=== PATIENT | male | born 1935 | race Caucasian/White ===

== ENCOUNTER 2016-12-07 09:30 | Day surgery (SDC) | payer MEDICARE, BC ==
[~2016-12-07 09:30] MED LIST: Acetaminophen TAB* 325 MG PO PRN; Buffered Lidocaine 1% SYR 3ML* 3 ML/SYR SYRINGE INTRADERM ONE
[2016-12-07] MEDS ORDERED: acetaZOLAMIDE TAB* 250 MG ONE (09:51)
[2016-12-07] MEDS ORDERED: Phenylephrine 2.5% OPTH.SOL* 2 ML BTL ONE (09:51)
[2016-12-07] MEDS ORDERED: Lidocaine 1% MPF* 2 ML VIAL ONE (09:51)
[2016-12-07] MEDS ORDERED: Neomycin/Polymy/Dex OPHTH.OIN* 3.5 GM ONE (09:51)
[2016-12-07] MEDS ORDERED: Flurbiprofen 0.03% OPTH.SOL* 2.5 ML BTL ONE (09:51)
[2016-12-07] MEDS ORDERED: Cyclopentolate 1% OPTH.SOL* 2 ML BTL ONE (09:51)
[2016-12-07] MEDS ORDERED: Tetracaine 0.5% OPTH.SOL 4 ML* 1 DROP BTL ONE (09:51)
[2016-12-07] MEDS ORDERED: Povidone Iodine 5% OPTH* 30 ML BTL ONE (09:51)
[2016-12-07] MEDS ORDERED: Midazolam* 1 MG/ML 2 ML VIAL (2 MG) ONE (10:51)
[2016-12-07 13:13] VITALS: BP 127/73
--- NOTE | 2016-12-08 03:30 | OP ---
DATE OF OPERATION: 12/07/16 - [facility] DATE OF : 35 SURGEON: Ben Pinto MD ANESTHESIOLOGIST: Nathan Jaramillo MD ANESTHESIA: Monitored anesthesia care. PRE-OP DIAGNOSIS: Cataract of left eye. POST-OP DIAGNOSIS: Cataract of left eye. OPERATIVE PROCEDURE: Cataract extraction of left eye. IMPLANTS: SN60WF 18.5 diopter lens to the left eye. COMPLICATIONS: None. DESCRIPTION OF PROCEDURE: The patient was given phenylephrine 2.5% and cyclopentolate 1% eye drops to the operative eye in the preoperative area. The patient was brought to the operating room where a time-out was taken to identify the correct patient, site, and side of surgery. The patient's left eye was prepped and draped in the usual sterile fashion with 5% Betadine. A second time-out was taken to verify the correct patient, site, and side of the surgery, and correct lens selection. A lid speculum was placed to the left eye. A 1-mm paracentesis blade was used to make a clear corneal incision in the inferotemporal position. Preservative-free 1% lidocaine was injected into the anterior chamber. DuoVisc was then injected into the anterior chamber. A 2.75-mm keratome blade was used to make a triplanar incision at the superotemporal position. A cystotome was used to initiate a capsulorrhexis, which was completed with Utrata forceps in a continuous and curvilinear manner. Hydrodissection of the lens was then performed with BSS on a cannula. The lens could be spun in the capsular bag. The phacoemulsification handpiece was then used with a [id number] technique to remove the nucleus in its entirety with 12.53 CDE. The I/A handpiece was then used to remove the residual cortical lens material. DuoVisc was then injected to inflate the capsular bag. The planned SN60WF 18.0 diopter lens was then injected in the capsular bag. The residual DuoVisc was then removed from the eye with the I/A handpiece. The corneal incisions were then hydrated and no leaks occurred at physiologic pressure around 20 mmHg per palpation. The lid speculum was then removed and drapes removed. Maxitrol ointment was then placed to the surface of the operative eye. An adhesive patch and shield were then placed on the operative eye. The patient was taken to the postop area in stable condition. [id number]/[id number] #: [id number] GUSTAVO
== END 2016-12-07 12:06 | disposition home or self-care (01) ==
LOC: OREAST 09:30
PROVIDERS: ATTEND Student in an Organized Health Care Education/Training Program
DX: H25.12 Age-related nuclear cataract, left eye (principal); I49.8 Other specified cardiac arrhythmias; I25.10 Atherosclerotic heart disease of native coronary artery without angina pectoris; R01.1 Cardiac murmur, unspecified; I35.0 Nonrheumatic aortic (valve) stenosis; Z95.0 Presence of cardiac pacemaker; E03.9 Hypothyroidism, unspecified; I25.2 Old myocardial infarction
CPT/HCPCS: A9270-GY; J2250; V2632

== ENCOUNTER 2017-03-17 13:25 | Emergency (ER) | payer MEDICARE, BC ==
[2017-03-17 13:45] VITALS: BP 129/68
--- NOTE | 2017-03-17 14:54 | UC ---
Laceration HPI - HPI Summary HPI Summary: LEFT FIFTH FINGER CAUGHT ON FENCE ON 03/13/17. SUSTAINED LACERATION AT THAT TIME. NOW REDNESS AND DISCHARGE FROM WOUND. ABLE TO FLEX AND EXTEND FINGER WITHOUT PAIN. TETANUS UP TO DATE. - History Of Current Complaint Chief Complaint: UCUpperExtremity Stated Complaint: HAND INJURY Time Seen by Provider: 03/17/17 14:26 Hx Obtained From: Patient Laceration Location: Finger - LEFT 5TH Mechanism Of Injury: Sharp Trauma Onset/Duration: Sudden Onset, Lasting Days, Still Present Severity: Mild Pain Intensity: 2 Pain Scale Used: 0-10 Numeric Related History: Dominant Hand Right - Allergies/Home Medications Allergies/Adverse Reactions: Allergies Allergy/AdvReac Type Severity Reaction Status Date / Time Statins AdvReac Intermediate Muscle Ache Verified 03/17/17 13:45 PMH/Surg Hx/FS Hx/Imm Hx Previously Healthy: Yes - Surgical History Surgical History: Yes Surgery Procedure, Year, and Place: rotator repair bilat/testicles lowered as kid/appy/tonsilectomy/thyroidectomy. cardiac stents placed. thumb surgery. right ankle repair 1973 - Family History Known Family History: Positive: Other - neg: anasthesia reaction Negative: Blood Disorder - Social History Occupation: Retired Lives: With Family Alcohol Use: None Substance Use Type: None Smoking Status (MU): Never Smoked Tobacco Have You Smoked in the Last Year: No - Immunization History Most Recent Tetanus Shot: less then Review of Systems Constitutional: Negative Skin: Other - LEFT FIFTH FINGER LACERATION (4 DAYS OLD) Eyes: Negative ENT: Negative Respiratory: Negative Cardiovascular: Negative Gastrointestinal: Negative Genitourinary: Negative Motor: Negative Neurovascular: Negative Musculoskeletal: Negative Neurological: Negative Psychological: Negative All Other Systems Reviewed And Are Negative: Yes Physical Exam Triage Information Reviewed: Yes Appearance: Well-Appearing, No Pain Distress, Well-Nourished Vital Signs: Initial Vital Signs Temp 98.1 F 03/17/17 13:38 Pulse 62 03/17/17 13:38 Resp 18 03/17/17 13:38 BP 129/68 03/17/17 13:38 Pulse Ox 98 03/17/17 13:38 Vital Signs Reviewed: Yes Eye Exam: Normal ENT Exam: Normal ENT: Positive: Normal ENT inspection Dental Exam: Normal Neck exam: Normal Neck: Positive: Supple, Nontender Respiratory Exam: Normal Respiratory: Positive: Chest non-tender, Lungs clear Cardiovascular Exam: Normal Cardiovascular: Positive: RRR, No Murmur Abdominal Exam: Normal Musculoskeletal: Positive: Strength Intact, ROM Intact, No Edema, Other: - REMOTE LACERATION LEFT FIFTH FINGER Neurological Exam: Normal Psychological Exam: Normal Skin Exam: Normal Laceration Repair - Laceration Repair 1 Description: Linear - 1.5 : No Repair Necessary Laceration Course/Dx - Differential Dx - Laceration/Wound Differental Diagnoses: Cellulitis, Joint Infection, Laceration, Tendon Laceration Provider Diagnoses: REMOTE LACERATION LEFT FIFTH FINGER WITH CORRESPONDING CELLULITIS Discharge - Discharge Plan Condition: Stable Disposition: HOME Prescriptions: Cephalexin CAP* [Keflex CAP*] 500 mg PO QID #40 cap Patient Education Materials: Laceration Without Closure (ED) Referrals: Aliyah Hooks MD [Primary Care Provider] - Lowell Long MD [Medical Doctor] - Images Hands: 1 - REMOTE LACERATION WITH SURROUNDING ERRYTHEMA
== END 2017-03-17 14:45 | disposition home or self-care (01) ==
LOC: UCEAST 13:25
DX: S61.217A Laceration without foreign body of left little finger without damage to nail, initial encounter (principal); L03.012 Cellulitis of left finger; W26.8XXA Contact with other sharp object(s), not elsewhere classified, initial encounter
CPT/HCPCS: 99213; G0463

== ENCOUNTER 2017-10-06 18:14 | Inpatient (IN) | payer MEDICARE, BC ==
--- NOTE | 2017-10-06 18:58 | RAD ---
INDICATION: Short of breath COMPARISON: March 02, 2017 TECHNIQUE: An AP portable view obtained at 1843 hours is submitted. FINDINGS: Bones/Soft Tissues: There are no acute bony findings. There is left-sided cardiac pacemaker Cardiomediastinal: The cardiomediastinal silhouette is unchanged. There is mild: Of the aorta. Lungs: There are no infiltrates. Pleura: There are no pleural effusions. Other: None IMPRESSION: CARDIAC PACEMAKER. NO ACTIVE DISEASE.
[2017-10-06 19:03] LABS: ABS Basophils 0 10^3/ul (0-0.2); ABS Eosinophils 0.2 10^3/ul (0-0.6); ABS Lymphocytes 0.8 10^3/ul (1.0-4.8); ABS Monocytes 0.8 10^3/ul (0-0.8); ABS Neutrophils 2.1 10^3/ul (1.5-7.7); ABS Nucleated RBC 0 10^3/ul; Eosinophil % 4.8 % (0-6); Hematocrit 37 % (42-52); Hemoglobin 12.4 g/dl (14.0-18.0); Lymphocyte % 21.5 % (25-47); Mean Corpuscular HGB Conc 34 g/dl (31-36); Mean Corpuscular Hemoglobin 30 pg (27-31); Mean Corpuscular Volume 89 fL (80-94); Mean Platelet Volume 9 um3 (7.4-10.4); Nucleated Red Blood Cells % 0; Platelet Count 148 10^3/ul (150-450); Red Blood Count 4.09 10^6/ul (4.0-5.4); Red Cell Distribution Width 13 % (10.5-15); White Blood Count 3.9 10^3/ul (3.5-10.8)
[2017-10-06 19:13] LABS: INR 0.98 (0.77-1.02)
[2017-10-06 19:17] LABS: EGFR Non-African American 119.7 (>60)
[2017-10-06] MEDS ORDERED: Iohexol 350* (CONTRAST) 500 ML MDV IV ONE (20:33)
--- NOTE | 2017-10-06 20:56 | RAD ---
INDICATION: Short of breath. Abdominal pain. COMPARISON: CTA chest/abdomen/pelvis October 07, 2012 TECHNIQUE: Axial source images were obtained from the thoracic inlet to the symphysis pubis following administration of oral and intravenous contrast. 98 mL Omnipaque 350 was utilized. Coronal and sagittal reconstructed images were acquired. CHEST FINDINGS: Neck/thyroid: The visualized neck to include the thyroid appear normal. Chest wall: There are no acute abnormalities of the bony thorax or chest wall. There is no supraclavicular, infraclavicular, or axillary lymphadenopathy. Lungs : There are no pulmonary parenchymal masses or infiltrates. The pulmonary interstitium appears normal. There are no endobronchial lesions. Cardiomediastinal structures: The heart is mildly enlarged. There is no pericardial effusion. There is a cardiac pacemaker/defibrillator producing beam hardening artifact. There is uncoiling and ectasia of the thoracic aorta with tortuosity at the diaphragmatic hiatus. There is no evidence of aortic aneurysm or dissection. The pulmonary vessels appear normal. There is no mediastinal or hilar adenopathy. The esophagus appears normal. Pleura : There are no pleural-based masses or effusions. ABDOMINAL/PELVIC FINDINGS: Liver: The liver is normal in size. There are no masses. There is no ductal dilatation. Gallbladder: There are a tiny calcified gallstone. There is no evidence of wall thickening or pericholecystic fluid. Spleen: The spleen is normal in size. There are no new masses. There are several low-density splenic lesions, possibly cysts. These are unchanged. Pancreas: There is no evidence of pancreatic mass or ductal dilatation. There is partial fatty replacement with mild pancreatic atrophy Adrenal glands: There is no evidence of adrenal mass. Kidneys: The kidneys are normal in size and position. There are prompt nephrograms and there is prompt excretion bilaterally. There are no renal parenchymal masses. There is no evidence of nephrolithiasis. Adenopathy: There is no evidence of adenopathy by size criteria. Fluid collections: There are no free or localized fluid collections. Vessels:There are mild atherosclerotic changes of the aorta. There is no focal aneurysm. The IVC is unremarkable GI tract: There are no acute CT bowel findings. There is no obstruction. The stomach and small bowel appear normal. The lower GI tract is remarkable for moderate retained stool. There is no obstruction. Pelvic organs: The prostate and seminal vesicles appear normal Bladder: There are no bladder masses. Abdominal and pelvic soft tissues: The extraperitoneal abdominal and pelvic soft tissues appear normal.. Osseous structures: There are no acute osseous findings. IMPRESSION: 1. 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 No evidence of aneurysm or dissection. No evidence of acute pulmonary emboli. 2. Tiny gallstone. 3. Stable low-density splenic lesions, likely cysts. 4. No mass or adenopathy in the abdomen or pelvis. 5. Retained stool
[2017-10-06 21:02] LABS: Urine Appearance Clear; Urine Blood 1+ (Negative); Urine Color Straw; Urine Ketones Negative (Negative); Urine Protein Negative (Negative); Urine Specific Gravity 1.008 (1.010-1.030); Urine Urobilinogen Negative (Negative)
--- NOTE | 2017-10-06 21:46 | ED ---
Hortencia Velasquez Gabriel, scribed for Joseph Levine MD on 10/06/17 at 1828 . Complex/Multi-Sys Presentation - HPI Summary HPI Summary: This patient is a 82 year old F presenting to [facility] with a chief complaint of SOB since the beginning of this week. Patient reports weakness, cough, and ABD pain. He has had normal BM and urination [employer]. He has a periumbilical hernia that has been there for 4-5 years. The patient is a poor historian and is attempting to describe how he has to put pressure on his ABD using the edge of a counter in order to breath. - History Of Current Complaint Chief Complaint: EDAbdPain Time Seen by Provider: 10/06/17 18:17 Hx Obtained From: Patient Onset/Duration: Lasting Weeks - 1, Still Present Timing: Constant Severity Currently: Moderate Severity Initially: Moderate Associated Signs And Symptoms: Positive: SOB, Cough, Other - weakness - Allergies/Home Medications Allergies/Adverse Reactions: Allergies Allergy/AdvReac Type Severity Reaction Status Date / Time Statins AdvReac Intermediate Muscle Ache Verified 10/06/17 20:07 PMH/Surg Hx/FS Hx/Imm Hx Endocrine/Hematology History: Reports: Hx Thyroid Disease - hypo Denies: Hx Diabetes, Hx Anemia Cardiovascular History: Reports: Hx Coronary Artery Disease, Hx Hypercholesterolemia - intolerance to statins, Hx Hypertension, Hx Pacemaker/ICD , Other Cardiovascular Problems/Disorders - acute coronary syndrome, stents placed Respiratory History: Reports: Hx Sleep Apnea - current BiPAP user Denies: Hx Asthma, Hx Chronic Obstructive Pulmonary Disease (COPD) GI History: Denies: Hx Jaundice, Hx Ulcer Musculoskeletal History: Reports: Hx Arthritis - R ANKLE, Hx Orthopedic Injury - (left) knee meniscus tear, bilateral shoulder rotator cuff tear, Other Musculoskeletal History - HX R ANKLE BReak, spinal stenosis Sensory History: Reports: Hx Cataracts - in left, Hx Contacts or Glasses - glasses, Hx Hearing Aid - bilateral, Hx Hearing Problem Opthamlomology History: Reports: Hx Cataracts - in left, Hx Contacts or Glasses - glasses - Surgical History Surgery Procedure, Year, and Place: rotator repair bilat/testicles lowered as kid/appy/tonsilectomy/thyroidectomy. cardiac stents placed. thumb surgery. right ankle repair 1973 Hx Anesthesia Reactions: No Infectious Disease History: No Infectious Disease History: Denies: Hx Clostridium Difficile, Hx Hepatitis, Hx Human Immunodeficiency Virus (HIV), Hx of Known/Suspected MRSA, Hx Shingles, Hx Tuberculosis, Hx Known/ Suspected VRE, Hx Known/Suspected VRSA, History Other Infectious Disease, Traveled Outside the [place] in Last 30 Days - Family History Known Family History: Positive: Cardiac Disease - father of [place] , Hypertension, Other - neg: anasthesia reaction Negative: Blood Disorder - Social History Occupation: Employed Full-time Alcohol Use: None Hx Substance Use: No Substance Use Type: Reports: None Hx Tobacco Use: No Smoking Status (MU): Never Smoked Tobacco Have You Smoked in the Last Year: No Review of Systems Positive: Shortness Of Breath, Cough Positive: Abdominal Pain, Other - normal BM Positive: no symptoms reported All Other Systems Reviewed And Are Negative: Yes Physical Exam Triage Information Reviewed: Yes Vital Signs On Initial Exam: Initial Vitals Temp Pulse Resp BP Pulse Ox 98.4 F 86 67 167/65 96 10/06/17 18:18 10/06/17 18:18 10/06/17 18:18 10/06/17 18:18 10/06/17 18:18 Vital Signs Reviewed: Yes Appearance: Positive: No Pain Distress Skin: Positive: Warm, Skin Color Reflects Adequate Perfusion Head/Face: Positive: Normal Head/Face Inspection Eyes: Positive: EOMI ENT: Positive: Pharynx normal Neck: Positive: Nontender Respiratory/Lung Sounds: Positive: Clear to Auscultation, Breath Sounds Present , Other - coughing Cardiovascular: Positive: RRR. Negative: Murmur Abdomen Description: Positive: Hernia @ - ventral and midline with some distention. Musculoskeletal: Positive: Strength/ROM Intact Neurological: Positive: Sensory/Motor Intact, Alert, Oriented to Person Place, Time, CN Intact II-III, Speech Normal Psychiatric: Positive: Normal - [place] Coma Scale Best Eye Response: 4 - Spontaneous Best Motor Response: 6 - Obeys Commands Best Verbal Response: 5 - Oriented Diagnostics - Vital Signs Vital Signs Temp Pulse Resp BP Pulse Ox 10/06/17 18:18 98.4 F 86 67 167/65 96 - Laboratory Lab Results: Lab Results 10/06/17 10/06/17 Range/Units 18:50 18:50 WBC 3.9 (3.5-10.8) 10^3/ul RBC 4.09 (4.0-5.4) 10^6/ul Hgb 12.4 L (14.0-18.0) g/dl Hct 37 L (42-52) % MCV 89 (80-94) fL MCH 30 (27-31) pg MCHC 34 (31-36) g/dl RDW 13 (10.5-15) % Plt Count 148 L (150-450) 10^3/ul MPV 9 (7.4-10.4) um3 Neut % (Auto) 52.7 (38-83) % Lymph % (Auto) 21.5 L (25-47) % [place] % (Auto) 20.6 H (1-9) % Eos % (Auto) 4.8 (0-6) % Baso % (Auto) 0.4 (0-2) % Absolute Neuts (auto) 2.1 (1.5-7.7) 10^3/ul Absolute Lymphs (auto) 0.8 L (1.0-4.8) 10^3/ul Absolute Monos (auto) 0.8 (0-0.8) 10^3/ul Absolute Eos (auto) 0.2 (0-0.6) 10^3/ul Absolute Basos (auto) 0 (0-0.2) 10^3/ul Absolute Nucleated RBC 0 10^3/ul Nucleated RBC % 0 Blood Type A Positive Antibody Screen Pending Result Diagrams: 10/06/17 18:50 10/06/17 18:50 Lab Statement: Any lab studies that have been ordered have been reviewed, and results considered in the medical decision making process. - Radiology CXR Radiology Interpretation Completed By: Radiologist - Cardiac pacemaker, no active disease. This report has been reviewed by ED physician. - CT CTA Chest/thorax/ABD CT Interpretation Completed By: Radiologist - 1. 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 No evidence of aneurysm or dissection. No evidence of acute pulmonary emboli. 2. Tiny gallstone. 3. Stable low-density splenic lesions, likely cysts. 4. No mass or adenopathy in the abdomen or pelvis. 5. Retained stool ED physician has reviewed this radiology report. - EKG 18:24 Cardiac Rate: NL EKG Rhythm: Sinus Rhythm - at 63 BPM EKG Interpretation: 1st degree AV block, paced spike EKG Comparison: Other - in comparison to EKG from 03/02/2017 there is flipped T waves in the inferior lead that are new Complex Multi-Symp Course/Dx Course Of Treatment: 82 yr old male with abdominal pain, sob, coughing. CTA chest abd pelvis without Aortic dissection, PE, pneumonia. The EKG does have some flip twaves that are new. Plan to admit for obv. - Diagnoses Provider Diagnoses: Shortness of breath, Abdominal pain, Acute electrocardiogram changes - Physician Notifications Discussed Care Of Patient With: Savanna Cruz Time Discussed With Above Provider: 21:41 Instructed by Provider To: Admit As Observation Discharge - Discharge Plan Condition: Good Disposition: ADMITTED TO [facility] Referrals: Aliyah Hooks MD [Primary Care Provider] - The documentation as recorded by the Hortencia becker Gabriel accurately reflects the service I personally performed and the decisions made by , Joseph Levine MD.
[2017-10-06] MEDS ORDERED: Ondansetron INJ* 2 MG/ML VIAL IV PRN (22:12)
[2017-10-06] MEDS ORDERED: Acetaminophen TAB* 325 MG PO PRN (22:12)
[2017-10-06] MEDS ORDERED: Al Hydrox/Mg Hydrox/Simet LIQ* 30 ML UDC PO PRN (22:12)
[2017-10-06] MEDS ORDERED: Aspirin EC Low Dose* 81 MG TAB.EC PO ONE (22:14)
[2017-10-06] MEDS ORDERED: guaiFENesin ER TAB 600 MG PO ONE (22:16)
[2017-10-06] MEDS ORDERED: Albuterol HFA INHALER* 8 gm MDI INH PRN (22:16)
--- NOTE | 2017-10-07 00:01 | HP ---
CC: Aliyah Hooks MD * HISTORY AND PHYSICAL: DATE OF ADMISSION: 10/06/17 TIME OF EVALUATION: 2200 PRIMARY CARE PHYSICIAN: Aliyah Hooks MD CHIEF COMPLAINT: Shortness of breath. HISTORY OF PRESENT ILLNESS: This is an 82-year-old male with past medical history of [place] and TIA, who presents to the emergency room with acute onset of shortness of breath and coughing. The patient states for the past 2 to 3 days, he has had a productive cough. He had fevers yesterday of 101 to 102, today they are 99. He says he had significant coughing spells and short of breath that he cannot get the mucus out. He has some gagging and worried that he is going to have inability to breathe. He also gets a diffuse headache when he is coughing and is worried that he is going to have a stroke due to the significant headache that he gets. No headache right now. He is not coughing. Denies any shortness of breath. He is having difficulty sleeping at night. He denies any chest pain. No nausea, vomiting. No abdominal pain. No diaphoresis. No dysuria, no constipation, no diarrhea. He has had body aches and generalized malaise. Otherwise, remaining review of systems is negative. In the emergency room, the patient had labs, imaging, EKG, concern for EKG changes and was referred to the hospitalist service for further evaluation. PAST MEDICAL HISTORY: 1. History of sick sinus syndrome, status post pacemaker. 2. Hypothyroidism. 3. History of TIA. 4. History of [place] with stent in 2003 done at [place]. 5. Hard of hearing, wears a hearing aid. MEDICATIONS: [place] Thyroid 120 mL daily in the morning. ALLERGIES: STATINS, develops muscle aches. FAMILY HISTORY: Mother from old age. Father at age 52 from an [place]. SOCIAL HISTORY: The patient lives alone. He ambulates with a cane. He is independent with ADLs. No history of tobacco, alcohol, or illicit drug use. Healthcare proxy is his sister, Yareli. Code status is full code. He has 4 grown children. REVIEW OF SYSTEMS: A 14-point review of systems is mentioned in the HPI, otherwise negative. PHYSICAL EXAMINATION GENERAL: No acute distress, resting comfortably with the son at the bedside. VITAL SIGNS: Temp 98.4, pulse rate 60, respiratory rate 16, oxygen saturation 94 % on room air, blood pressure 151/71. HEENT: Head normocephalic. Pupils equal and reactive. Anicteric. Oropharynx , mucous membranes moist. NECK: Supple. No lymphadenopathy. No nuchal rigidity. RESPIRATORY: Diminished breath sounds. No wheezing, rhonchi, rales. No increased work of breathing. CARDIAC: Regular rate and rhythm. Soft systolic murmur heard throughout. ABDOMEN: Soft, nontender, nondistended. EXTREMITIES: No clubbing, cyanosis, or edema. +1 DPs. NEUROLOGICAL: Alert and oriented x3. No focal neurological deficits. LABORATORY DATA: White count 3.9, hemoglobin 12.9, hematocrit 37, platelets 148,000. INR 0.98. Sodium 136, potassium 3.9, chloride 102, bicarb 28, BUN 13 , creatinine 0.64, glucose 112. CRP is 22. BNP is 125. Lipase less than 10. Lactic acid is 1. Serology is negative for influenza. RADIOGRAPHIC DATA: CTA of abdomen and pelvis shows mild diffuse ectasia of the thoracic aorta. No evidence of aneurysm, dissection. No evidence of acute pulmonary emboli. Tiny gallstones. No pulmonary infiltrates. EKG; the patient with noted marked ST inversions in lateral leads, changed from his EKG in February 2017. Also noted to have inverted T waves in V2, V3, and aVF. ASSESSMENT/PLAN: This is an 82-year-old male with past medical history of transient ischemic attack and myocardial infarction, who presents to the emergency room with upper respiratory symptoms and shortness of breath. Shortness of breath. Assessment: It appears the patient has shortness of breath when he has a coughing spell and difficulty to get out the mucus. Incidentally, he is found to have EKG changes. Denies any chest pain or any cardiac symptoms. Plan: Not unreasonable to admit him for observation on telemetry, monitor his troponin, repeat an EKG. We will continue supportive care for what appears to be a viral illness including Mucinex and a trial of albuterol inhaler as needed and we will also start him on a baby aspirin for now. CHRONIC MEDICAL PROBLEMS: 1. Hypothyroidism. Resume his [place] Thyroid. 2. FEN. Place him on a regular diet. 3. DVT prophylaxis. The patient's score is moderate risk. We will place him on heparin subcu t.i.d. 4. Code status. Full code. TIME SPENT: Greater than 50 minutes spent doing history and physical, more than half the time spent in direct patient contact. [id number] #: [id number] MTDD
[2017-10-07] MEDS: Heparin VIAL(*) 5000 UNITS/ML VIAL (FIVE THOUSAND) SUBCUT SCH ×3 (05:56→20:57)
[2017-10-07] MEDS: Thyroid TAB* 120 MG PO SCH (09:45)
[2017-10-07] MEDS: Aspirin EC Low Dose* 81 MG TAB.EC PO SCH (09:46)
[2017-10-07] MEDS: guaiFENesin ER TAB 600 MG PO SCH ×2 (09:46→20:57)
[2017-10-07] MEDS: cefTRIAXone(*) 1 GM in D5W 50 ML BAG* 50 ML IVPB SCH (11:29)
[2017-10-07 12:12] LABS: Hematocrit 38 % (42-52); Hemoglobin 12.7 g/dl (14.0-18.0); Mean Corpuscular HGB Conc 34 g/dl (31-36); Mean Corpuscular Hemoglobin 30 pg (27-31); Mean Corpuscular Volume 90 fL (80-94); Mean Platelet Volume 9 um3 (7.4-10.4); Platelet Count 147 10^3/ul (150-450); Red Blood Count 4.22 10^6/ul (4.0-5.4); Red Cell Distribution Width 13 % (10.5-15); White Blood Count 3.7 10^3/ul (3.5-10.8)
[2017-10-07] MEDS: Azithromycin IV(*) 500 MG in NS 0.9% 250 ML* 250 ML IVPB SCH (12:19)
[2017-10-07 12:38] LABS: Monocytes % 18 % (0-13)
--- NOTE | 2017-10-07 16:30 | ECHO ---
Patient: KAYLAN PENA [facility], [place] Rec#: [id number] : 1935 Date: 10/07/2017 Age: 82y Height: 167.6 cm / 66.0 in Weight: 84.8 kg / 186.9 lbs Sex: M BSA: 1.94 Room#: 433 Admit Date#: 10/06/2017 Type: Inpatient Referring: Aliyah Hooks MD Reading: Rui Bridges MD Healthcare Corporate Account Director: Regine Easton RN RDCS Transthoracic Echocardiogram Indication: Aortic stenosis BP: 130/65 HR: 65 Rhythm: Paced Findings History: CAD, NV, PCI, SSS, pacemaker, TIA Technical Comments: The study quality is fair. Completed at 1555. Left Ventricle: The left ventricular chamber size is normal. Mild concentric left ventricular hypertrophy is observed. There is increased basal septal hypertrophy noted without evidence of an increased gradient across the left ventricular outflow tract. Global left ventricular wall motion and contractility are within normal limits. There is normal left ventricular systolic function. The estimated ejection fraction is 55-60%. There is abnormal ventricular septal wall motion consistent with right ventricular pacemaker. There is an E to A reversal in the mitral valve flow pattern suggestive of diastolic dysfunction. Left Atrium: The left atrium is mildly dilated. Right Ventricle: The right ventricular chamber size and systolic function are within normal limits. A pacemaker wire is visualized in the right ventricle. Right Atrium: The right atrium is mildly dilated. A pacemaker wire is visualized in the right atrium. There is evidence of an atrial septal aneurysm. No shunting seen on color flow doppler interrogaton. Aortic Valve: The aortic valve is trileaflet. The aortic valve leaflets are mildly thickened. Systolic excursion of the aortic valve cusps is reduced. There is aortic annular calcification. There is mild aortic regurgitation. There is borderline aortic stenosis present. The mean gradient of the aortic valve is 10.4 mmHg. The peak instantaneous gradient of the aortic valve is 17.6 mmHg. The aortic valve area, by peak velocities, is calculated at 2 cm2. The aortic valve area, by VTI's, is calculated at 1.8 cm2. The highest aortic valve velocity was obtained with the standard probe from the A3C view. Mitral Valve: The mitral valve leaflets are mildly thickened. There is trace to mild mitral regurgitation. Tricuspid Valve: The tricuspid valve leaflets are normal. There is mild tricuspid regurgitation. No pulmonary hypertension is noted. Pulmonic Valve: The pulmonic valve structure is not well visualized. There is no evidence of pulmonic regurgitation. There is no pulmonic stenosis. Pericardium: There is no significant pericardial effusion. A pericardial fat pad is visualized. Aorta: There is moderate dilatation of the ascending aorta. The aortic arch is not well visualized. There is mild dilatation of the aortic root. Pulmonary Artery: The main pulmonary artery is not well visualized. Venous: The inferior vena cava appears normal in size. There is a greater than 50% respiratory change in the inferior vena cava dimension. Conclusions There is normal left ventricular systolic function. The estimated ejection fraction is 55-60%. Global left ventricular wall motion and contractility are within normal limits. There is an E to A reversal in the mitral valve flow pattern suggestive of diastolic dysfunction. The left atrium is mildly dilated. The right atrium is mildly dilated. There is mild aortic regurgitation. There is borderline aortic stenosis (). There is mild tricuspid regurgitation. There is mild dilatation of the aortic root. There is moderate dilatation of the ascending aorta. Since the prior echocardiogram completed 06/10/16, pertinent change is prior mildly dilated ascending aorta seen. Measurements Name Value Normal Range RVDdMajor (2D) 4.2 cm (2.2 - 4.4) RAd ISD 4CH 5.2 cm (3.4 - 4.9) RA (A4C)W 3.7 cm (2.9 - 4.6) IVSd (2D) 1.2 cm (0.6 - 1) LVPWd (2D) 1.1 cm (0.6 - 1) LVIDd (2D) 3.6 cm (3.6 - 5.4) LVIDs (2D) 2.7 cm - LV FS (2D) 25 % (25 - 45) Aortic Annulus 2.7 cm (1.4 - 2.6) Ao root diameter (2D) 3.6 cm (2.1 - 3.5) Ascending Ao 4.4 cm (2.1 - 3.4) LA dimension (AP) 2D 4.1 cm (2.3 - 3.8) LAd ISD 4CH 5.1 cm (2.9 - 5.3) LA ISD 4CH W 4.8 cm (2.5 - 4.5) Aortic root diameter (2D1.37 cm/m2 - Name Value Normal Range LA ESV SP 4CH (A/L) 72 ml - LA ESV SP 2CH (A/L) 56 ml - LA ESV BP (A/L) 68 ml - LA ESV BP (A/L) index 35 ml/m2 - LA ESV SP 4CH (MOD) 70 ml - LA ESV SP 2CH (MOD) 50 ml - Name Value Normal Range MV E-wave Vmax 0.55 m/sec - MV deceleration time 253 msec - MV A-wave Vmax 0.83 m/sec - MV E:A ratio 0.66 ratio - LV septal e' Vmax 0.05 m/sec - LV lateral e' Vmax 0.06 m/sec - LV E:e' septal ratio 11 ratio - LV E:e' lateral ratio 9.2 ratio - Name Value Normal Range AV Vmax 2.1 m/sec - AV VTI 52 cm - AV peak gradient 17.6 mmHg - AV mean gradient 10.4 mmHg - LVOT diameter 2.1 cm - LVOT Vmax 1.2 m/sec - LVOT VTI 26.9 cm - LVOT peak gradient 5.6 mmHg - LVOT mean gradient 3.3 mmHg - DOI (VTI) 0.52 ratio - DOI (Vmax) 0.57 ratio - SV LVOT 93.1 ml - CO LVOT 6.1 l/min - Cardiac index 3.1 l/min/m2 - TIMOTHY (continuity Vmax) 2 cm2 - TIMOTHY (continuity VTI) 1.8 cm2 - Name Value Normal Range TR Vmax 2.6 m/sec - TR peak gradient 27 mmHg - RAP 3 mmHg - RVSP 30 mmHg - IVC diameter 1.5 cm - Name Value Normal Range PV Vmax 0.75 m/sec -
[2017-10-08] MEDS: Heparin VIAL(*) 5000 UNITS/ML VIAL (FIVE THOUSAND) SUBCUT SCH ×3 (05:47→21:17)
[2017-10-08] MEDS: Aspirin EC Low Dose* 81 MG TAB.EC PO SCH (09:23)
[2017-10-08] MEDS: Thyroid TAB* 120 MG PO SCH (09:23)
[2017-10-08] MEDS: guaiFENesin ER TAB 600 MG PO SCH ×2 (09:23→21:17)
[2017-10-08] MEDS: cefTRIAXone(*) 1 GM in D5W 50 ML BAG* 50 ML IVPB SCH (11:11)
[2017-10-08] MEDS: Azithromycin IV(*) 500 MG in NS 0.9% 250 ML* 250 ML IVPB SCH (12:07)
[2017-10-09] MEDS: Heparin VIAL(*) 5000 UNITS/ML VIAL (FIVE THOUSAND) SUBCUT SCH ×2 (05:53→14:30)
[2017-10-09] MEDS: Thyroid TAB* 120 MG PO SCH (08:01)
[2017-10-09] MEDS: guaiFENesin ER TAB 600 MG PO SCH (08:01)
[2017-10-09] MEDS: Aspirin EC Low Dose* 81 MG TAB.EC PO SCH (08:01)
[2017-10-09] MEDS ORDERED: cefTRIAXone(*) 1 GM in NS 0.9% 50 ML* 50 ML IVPB ONE (11:00)
[2017-10-09] MEDS: Azithromycin IV(*) 500 MG in NS 0.9% 250 ML* 250 ML IVPB SCH (11:08)
[2017-10-09 14:28] VITALS: BP 139/65
--- NOTE | 2017-10-10 02:50 | DS ---
DISCHARGE SUMMARY: DATE OF ADMISSION: 10/06/17 DATE OF DISCHARGE: 10/09/17 DISCHARGE DIAGNOSES: 1. Pneumonia. 2. Bronchospasm. 3. History of coronary artery disease. 4. History of paroxysmal atrial fibrillation in 2013, not recent. 5. Hypothyroidism. 6. Pacemaker. 7. Cholelithiasis. 8. Aortic stenosis, borderline. HISTORY: Blake Vo is an 82-year-old man admitted with cough, shortness of breath and wheezing. Please see the dictated admission note for details of the present illness, past medical history, family history, social and personal history, review of systems, and physical examination. LABORATORY DATA: CBC on admission, WBC 3.9, H and H 12.4/37, PLT 148,000. CBC on 10/07/17, WBC 3.7, H and H 12.7/38, MCV 90, PLT 147,000, 39 neutrophils, 35 lymphocytes, 18 monocytes, 8 eosinophils. INR and PTT normal. Chemistries on admission, sodium 136, potassium 3.9, chloride 102, CO2 28, BUN and creatinine 13/0.64, glucose 112. Rest of comprehensive metabolic panel was within normal limits. Lipase normal at less than 10. TSH normal at 1.38. Blood calcitonin normal at less than 0.1. On 10/07/17, CRP was 22.64 on 10/06/17, came down to 17.55 on . Lactic acid was normal at 1.0 on 10/06/17. Urinalysis, straw clear, specific gravity 1.008, pH 7, dipstick positive for blood 1+, rbc's 3 to 5 per high power field, trace white cells. Serology showed negative flu A and B. Blood cultures x2 were no growth. Blood type was A positive. IMAGING: Chest x-ray on 10/06/17 showed no evidence for acute cardiopulmonary disease. Pacemaker was present. Chest, abdomen, and pelvis CTA on 10/06/17 showed mild cardiomegaly, cardiac pacemaker present. There were no infiltrates called by the radiologist, but I thought there was some haziness, infiltrate at the right posterior lung base. Tiny calcified gallstones were seen. Retained stool was noted. EKG on 10/06/17 showed sinus or ectopic atrial rhythm, borderline prolonged [place] interval, left anterior fascicular block, abnormal R wave progression, early transition, inferior and anterolateral T-wave inversions due to ischemia versus LVH due since 03/02/17 EKG. EKG on 10/07/17 showed paced rhythm. EKG on 10/08/17 showed paced rhythm, right atrial ventricular paced rhythm. Transthoracic echocardiogram showed normal LV function, EF 55% to 60%, E to A reversal suggestive of diastolic dysfunction. HOSPITAL COURSE: The patient was initially admitted. Troponins were trended and were found to be flat. RI was ruled out. He had no further chest pain. He continued to cough, but this improved after starting on antibiotics for possible pneumonia. He did seem a little bit better on 10/07/17 than he had on admission. He had received aspirin and Mucinex in the emergency room. He continued on his usual [place] Thyroid. He was a full code. He was placed on heparin subcu for DVT prophylaxis t.i.d. With institution of antibiotics, he felt much better. He received ceftriaxone and azithromycin. He received a total of 3 days of each. I felt on 10/09/17 with 1500 mg of azithromycin that he had adequate treatment with antibiotics as he is feeling much better and his procalcitonin was low. PHYSICAL EXAMINATION: Vital signs on discharge, blood pressure 135/69, pulse 62 , respirations 20, temperature 97.7, O2 sat 94%. He still had rales at the right base with wheezing on forced expiration. His cardiac exam showed 2/6 systolic murmur. He had no edema. It was felt that he could be discharged on the current medications [place] Thyroid 120 mg daily, albuterol inhaler 2 puffs every 4 hours as needed for shortness of breath, cough, or wheezing, although he did not think that he would use it. DIET: His diet is usual. ACTIVITY: His activity is tolerated. FOLLOWUP: He will follow up with me in 1 to 2 weeks. [id number]/[facility] #: [id number] GUSTAVO
[2017-10-10] MEDS ORDERED: cefTRIAXone(*) 1 GM in D5W 50 ML BAG* 50 ML IVPB SCH (11:00)
== END 2017-10-09 11:45 | disposition home or self-care (01) | DRG 195 ==
LOC: ED 18:14 → MEDTELE 22:12 → OBSVTOIN 10-08 14:10
PROVIDERS: ADMIT Pediatrics; ATTEND Internal Medicine Geriatric Medicine
DX: J18.9 Pneumonia, unspecified organism (principal); I48.0 Paroxysmal atrial fibrillation; I49.5 Sick sinus syndrome; J98.01 Acute bronchospasm; I25.10 Atherosclerotic heart disease of native coronary artery without angina pectoris; E03.9 Hypothyroidism, unspecified; K80.20 Calculus of gallbladder without cholecystitis without obstruction; I35.0 Nonrheumatic aortic (valve) stenosis; Z95.0 Presence of cardiac pacemaker; Z86.73 Personal history of transient ischemic attack (TIA), and cerebral infarction without residual deficits; I25.2 Old myocardial infarction; Z79.899 Other long term (current) drug therapy; Z88.8 Allergy status to other drugs, medicaments and biological substances; Z82.49 Family history of ischemic heart disease and other diseases of the circulatory system
CPT/HCPCS: 36415; 71045; 71275; 74177; 80053; 81003; 81015; 83605; 83690; 83735; 83880; 84145; 84443; 84484; 85025; 85060; 85610; 85730; 86140; 86850; 86900; 86901; 87040; 87502; 93005; 93306; 94760; 99285; A9270-GY; G0378; J0456; J0696; J1644; Q9967

== ENCOUNTER 2017-12-31 08:28 | Emergency (ER) | payer MEDICARE, BC ==
[2017-12-31] MEDS ORDERED: Meclizine TAB* 12.5 MG PO ONE (09:05)
[2017-12-31] MEDS ORDERED: NS 0.9% 1000 ML* 1,000 ML IV ONE (09:05)
[2017-12-31] MEDS ORDERED: NS 0.9% 1000 ML* 1,000 ML IV SCH (09:15)
[2017-12-31 09:23] LABS: ABS Basophils 0 10^3/ul (0-0.2); ABS Eosinophils 0.2 10^3/ul (0-0.6); ABS Lymphocytes 0.9 10^3/ul (1.0-4.8); ABS Monocytes 0.4 10^3/ul (0-0.8); ABS Neutrophils 3.4 10^3/ul (1.5-7.7); ABS Nucleated RBC 0 10^3/ul; Eosinophil % 3.2 % (0-6); Hematocrit 41 % (42-52); Hemoglobin 13.8 g/dl (14.0-18.0); Lymphocyte % 19.4 % (25-47); Mean Corpuscular HGB Conc 34 g/dl (31-36); Mean Corpuscular Hemoglobin 30 pg (27-31); Mean Corpuscular Volume 88 fL (80-94); Nucleated Red Blood Cells % 0.1; Platelet Count 162 10^3/ul (150-450); Red Blood Count 4.65 10^6/ul (4.0-5.4); Red Cell Distribution Width 13 % (10.5-15); White Blood Count 4.9 10^3/ul (3.5-10.8)
--- NOTE | 2017-12-31 09:31 | RAD ---
INDICATION: Dizziness. COMPARISON: There are no prior studies available for comparison. TECHNIQUE: Contiguous axial sections of the brain were obtained from the skull base to the vertex without contrast. FINDINGS: The ventricles, cisterns and sulci are enlarged consistent with diffuse atrophy. There are small areas of decreased density in the subcortical and periventricular white matter suggestive of mild chronic small vessel ischemic changes. There is also a small focal area of encephalomalacia present in the subcortical white matter in the posterior right parietal lobe most consistent with an old infarct. No other focal abnormalities or mass effect are seen. There is no evidence for hemorrhage. There is dolichoectasia of the basilar artery. No significant focal osseous abnormality is seen. The visualized portion of the paranasal sinuses and mastoid air cells appear clear. IMPRESSION: 1. NO EVIDENCE FOR ACUTE INTRACRANIAL ABNORMALITY. 2. 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
--- NOTE | 2017-12-31 09:44 | RAD ---
HISTORY: Dizziness COMPARISONS: March 06, 2018 VIEWS: 4: Frontal dual-energy and lateral views of the chest. FINDINGS: CARDIOMEDIASTINAL SILHOUETTE: The aorta is tortuous. The cardiomediastinal silhouette is otherwise unremarkable. TAMERA: The tamera are normal. PLEURA: The costophrenic angles are sharp. No pleural abnormalities are noted. LUNG PARENCHYMA: The lungs are clear. ABDOMEN: The upper abdomen is clear. There is no subphrenic gas. BONES AND SOFT TISSUES: Degenerative changes are noted along the spine. OTHER: A left-sided pacemaker is noted. IMPRESSION: NO ACTIVE CARDIOPULMONARY DISEASE.
[2017-12-31 09:50] LABS: EGFR Non-African American 111.6 (>60)
[2017-12-31 10:47] LABS: Urine Appearance Clear; Urine Blood Negative (Negative); Urine Color Yellow; Urine Ketones Negative (Negative); Urine Protein Negative (Negative); Urine Specific Gravity 1.005 (1.010-1.030); Urine Urobilinogen Negative (Negative)
[2017-12-31 11:16] VITALS: BP 157/82
--- NOTE | 2018-01-01 08:04 | ED ---
Hans Velasquez Angela, scribed for Joseph Leahy MD on 12/31/17 at 0907 . Dizziness - HPI Summary HPI Summary: This pt is a 82 y/o male presenting to [facility] c/o dizziness since 04:00 this morning. Pt reports he woke up at 04:00 not feeling well. He woke up again at 07 :00 to go to the bathroom and he had an unsteady gait. Pt notes he had to lean against the wall and was unable to stand up. Pt additionally states nausea. He denies room spinning or lightheadedness. Denies chest pain, SOB, headache, blurred vision, vomiting. - History Of Current Complaint Chief Complaint: EDDizziness Stated Complaint: DIZZINESS Time Seen by Provider: 12/31/17 08:50 Hx Obtained From: Patient Onset/Duration: Still Present Timing: Hours Severity Currently: Moderate Character: Dizzy Aggravating Factor(s): Nothing Alleviating Factor(s): Nothing Associated Signs And Symptoms: Positive: Nausea, Unsteady Gait, Other: - NEG: headache. Negative: Vomiting, Chest Pain, SOB, Visual Changes, Fever - Allergies/Home Medications Allergies/Adverse Reactions: Allergies Allergy/AdvReac Type Severity Reaction Status Date / Time Molcdrj-Kyf-Idy Reductase Allergy Muscle Ache Verified 12/31/17 08:45 Inhibitor PMH/Surg Hx/FS Hx/Imm Hx Endocrine/Hematology History: Reports: Hx Thyroid Disease - hypo Denies: Hx Diabetes, Hx Anemia Cardiovascular History: Reports: Hx Coronary Artery Disease, Hx Hypercholesterolemia - intolerance to statins, Hx Hypertension, Hx Pacemaker/ICD , Other Cardiovascular Problems/Disorders - acute coronary syndrome, stents placed Respiratory History: Reports: Hx Sleep Apnea - current BiPAP user Denies: Hx Asthma, Hx Chronic Obstructive Pulmonary Disease (COPD) GI History: Denies: Hx Jaundice, Hx Ulcer History: Denies: Hx Renal Disease Musculoskeletal History: Reports: Hx Arthritis - R ANKLE, Hx Orthopedic Injury - (left) knee meniscus tear, bilateral shoulder rotator cuff tear, Other Musculoskeletal History - HX R ANKLE BReak, spinal stenosis Sensory History: Reports: Hx Cataracts - in left, Hx Contacts or Glasses, Hx Hearing Aid, Hx Hearing Problem Opthamlomology History: Reports: Hx Cataracts - in left, Hx Contacts or Glasses - Surgical History Surgery Procedure, Year, and Place: rotator repair bilat/testicles lowered as kid/appy/tonsilectomy/thyroidectomy. cardiac stents placed. thumb surgery. right ankle repair 1974 Hx Anesthesia Reactions: No - Immunization History Date of Influenza Vaccine: has not received Infectious Disease History: No Infectious Disease History: Denies: Hx Clostridium Difficile, Hx Hepatitis, Hx Human Immunodeficiency Virus (HIV), Hx of Known/Suspected MRSA, Hx Shingles, Hx Tuberculosis, Hx Known/ Suspected VRE, Hx Known/Suspected VRSA, History Other Infectious Disease, Traveled Outside the [place] in Last 30 Days - Family History Known Family History: Positive: Cardiac Disease - father of [place] , Hypertension, Other - neg: anasthesia reaction Negative: Blood Disorder - Social History Alcohol Use: None Hx Substance Use: No Substance Use Type: Reports: None Hx Tobacco Use: No Smoking Status (MU): Never Smoked Tobacco Have You Smoked in the Last Year: No Review of Systems Negative: Fever Negative: Blurred Vision Negative: Chest Pain Negative: Shortness Of Breath Positive: Nausea. Negative: Vomiting Neurological: Other - POS: dizziness Negative: Headache All Other Systems Reviewed And Are Negative: Yes Physical Exam - Summary Physical Exam Summary: VITAL SIGNS: Reviewed. GENERAL: Patient is a well-developed and nourished male who is lying comfortable in the stretcher. Patient is not in any acute respiratory distress. HEAD AND FACE: No signs of trauma. No ecchymosis, hematomas or skull depressions. No sinus tenderness. EYES: PERRLA, EOMI x 2, No injected conjunctiva, no nystagmus. EARS: Hearing grossly intact. Ear canals and tympanic membranes are within normal limits. MOUTH: Oropharynx within normal limits. NECK: Supple, trachea is midline, no adenopathy, no JVD, no carotid bruit, no c- spine tenderness, neck with full ROM. CHEST: Symmetric, no tenderness at palpation LUNGS: Clear to auscultation bilaterally. No wheezing or crackles. CVS: Regular rate and rhythm, S1 and S2 present, no murmurs or gallops appreciated. ABDOMEN: Soft, non-tender. No signs of distention. No rebound no guarding, and no masses palpated. Bowel sounds are normal. EXTREMITIES: FROM in all major joints, no edema, no cyanosis or clubbing. NEURO: Alert and oriented x 3. No acute neurological deficits. Speech is normal and follows commands. SKIN: Dry and warm GCS: 15 Triage Information Reviewed: Yes Vital Signs On Initial Exam: Initial Vitals Temp Pulse Resp BP Pulse Ox 96 F 66 15 153/74 96 12/31/17 08:46 12/31/17 08:46 12/31/17 08:46 12/31/17 08:46 12/31/17 08:46 Vital Signs Reviewed: Yes Diagnostics - Vital Signs Vital Signs Temp Pulse Resp BP Pulse Ox 12/31/17 08:46 96 F 66 15 153/74 96 - Laboratory Lab Results: Lab Results 12/31/17 12/31/17 12/31/17 Range/Units 09:12 09:12 09:12 WBC (3.5-10.8) 10^3/ul RBC (4.0-5.4) 10^6/ul Hgb (14.0-18.0) g/dl Hct (42-52) % MCV (80-94) fL MCH (27-31) pg MCHC (31-36) g/dl RDW (10.5-15) % Plt Count (150-450) 10^3/ul MPV (7.4-10.4) um3 Neut % (Auto) (38-83) % Lymph % (Auto) (25-47) % [place] % (Auto) (0-7) % Eos % (Auto) (0-6) % Baso % (Auto) (0-2) % Absolute Neuts (auto) (1.5-7.7) 10^3/ul Absolute Lymphs (auto) (1.0-4.8) 10^3/ul Absolute Monos (auto) (0-0.8) 10^3/ul Absolute Eos (auto) (0-0.6) 10^3/ul Absolute Basos (auto) (0-0.2) 10^3/ul Absolute Nucleated RBC 10^3/ul Nucleated RBC % APTT 34.4 (26.0-36.3) seconds Sodium 141 (139-145) mmol/L Potassium 4.0 (3.5-5.0) mmol/L Chloride 107 (101-111) mmol/L Carbon Dioxide 28 (22-32) mmol/L Anion Gap 6 (2-11) mmol/L BUN 13 (6-24) mg/dL Creatinine 0.68 (0.67-1.17) mg/dL Est GFR ( Amer) 143.6 (>60) Est GFR (Non-Af Amer) 111.6 (>60) BUN/Creatinine Ratio 19.1 (8-20) Glucose 103 H (70-100) mg/dL Lactic Acid (0.5-2.0) mmol/L Calcium 9.7 (8.6-10.3) mg/dL Magnesium 2.0 (1.9-2.7) mg/dL Total Bilirubin 0.50 (0.2-1.0) mg/dL AST 23 (13-39) U/L ALT 23 (7-52) U/L Alkaline Phosphatase 60 (34-104) U/L Total Creatine Kinase 55 (10-223) U/L Troponin I 0.02 (<0.04) ng/mL C-Reactive Protein 1.45 (< 5.00) mg/L B-Natriuretic Peptide 98 ( - 100) pg/mL Total Protein 6.9 (6.4-8.9) g/dL Albumin 4.6 (3.2-5.2) g/dL Globulin 2.3 (2-4) g/dL Albumin/Globulin Ratio 2.0 (1-3) TSH 0.76 (0.34-5.60) mcIU/mL Urine Color Urine Appearance Urine pH (5-9) Ur Specific [place] (1.010-1.030) Urine Protein (Negative) Urine Ketones (Negative) Urine Blood (Negative) Urine Nitrate (Negative) Urine Bilirubin (Negative) Urine Urobilinogen (Negative) Ur Leukocyte Esterase (Negative) Urine Glucose (Negative) Urine Opiates Screen (None Detect) Ur Barbiturates Screen (None Detect) Ur Phencyclidine Scrn (None Detect) Ur Amphetamines Screen (None Detect) U Benzodiazepines Scrn (None Detect) Urine Cocaine Screen (None Detect) U Cannabinoids Screen (None Detect) Serum Alcohol < 10 (<10) mg/dL 12/31/17 12/31/17 12/31/17 Range/Units 09:12 09:12 10:30 WBC 4.9 (3.5-10.8) 10^3/ul RBC 4.65 (4.0-5.4) 10^6/ul Hgb 13.8 L (14.0-18.0) g/dl Hct 41 L (42-52) % MCV 88 (80-94) fL MCH 30 (27-31) pg MCHC 34 (31-36) g/dl RDW 13 (10.5-15) % Plt Count 162 (150-450) 10^3/ul MPV 9.0 (7.4-10.4) um3 Neut % (Auto) 69.0 (38-83) % Lymph % (Auto) 19.4 L (25-47) % [place] % (Auto) 7.9 H (0-7) % Eos % (Auto) 3.2 (0-6) % Baso % (Auto) 0.5 (0-2) % Absolute Neuts (auto) 3.4 (1.5-7.7) 10^3/ul Absolute Lymphs (auto) 0.9 L (1.0-4.8) 10^3/ul Absolute Monos (auto) 0.4 (0-0.8) 10^3/ul Absolute Eos (auto) 0.2 (0-0.6) 10^3/ul Absolute Basos (auto) 0 (0-0.2) 10^3/ul Absolute Nucleated RBC 0 10^3/ul Nucleated RBC % 0.1 APTT (26.0-36.3) seconds Sodium (139-145) mmol/L Potassium (3.5-5.0) mmol/L Chloride (101-111) mmol/L Carbon Dioxide (22-32) mmol/L Anion Gap (2-11) mmol/L BUN (6-24) mg/dL Creatinine (0.67-1.17) mg/dL Est GFR ( Amer) (>60) Est GFR (Non-Af Amer) (>60) BUN/Creatinine Ratio (8-20) Glucose (70-100) mg/dL Lactic Acid 1.3 (0.5-2.0) mmol/L Calcium (8.6-10.3) mg/dL Magnesium (1.9-2.7) mg/dL Total Bilirubin (0.2-1.0) mg/dL AST (13-39) U/L ALT (7-52) U/L Alkaline Phosphatase (34-104) U/L Total Creatine Kinase (10-223) U/L Troponin I (<0.04) ng/mL C-Reactive Protein (< 5.00) mg/L B-Natriuretic Peptide ( - 100) pg/mL Total Protein (6.4-8.9) g/dL Albumin (3.2-5.2) g/dL Globulin (2-4) g/dL Albumin/Globulin Ratio (1-3) TSH (0.34-5.60) mcIU/mL Urine Color Urine Appearance Urine pH (5-9) Ur Specific [place] (1.010-1.030) Urine Protein (Negative) Urine Ketones (Negative) Urine Blood (Negative) Urine Nitrate (Negative) Urine Bilirubin (Negative) Urine Urobilinogen (Negative) Ur Leukocyte Esterase (Negative) Urine Glucose (Negative) Urine Opiates Screen None detected (None Detect) Ur Barbiturates Screen None detected (None Detect) Ur Phencyclidine Scrn None detected (None Detect) Ur Amphetamines Screen None detected (None Detect) U Benzodiazepines Scrn None detected (None Detect) Urine Cocaine Screen None detected (None Detect) U Cannabinoids Screen None detected (None Detect) Serum Alcohol (<10) mg/dL 12/31/17 Range/Units 10:30 WBC (3.5-10.8) 10^3/ul RBC (4.0-5.4) 10^6/ul Hgb (14.0-18.0) g/dl Hct (42-52) % MCV (80-94) fL MCH (27-31) pg MCHC (31-36) g/dl RDW (10.5-15) % Plt Count (150-450) 10^3/ul MPV (7.4-10.4) um3 Neut % (Auto) (38-83) % Lymph % (Auto) (25-47) % [place] % (Auto) (0-7) % Eos % (Auto) (0-6) % Baso % (Auto) (0-2) % Absolute Neuts (auto) (1.5-7.7) 10^3/ul Absolute Lymphs (auto) (1.0-4.8) 10^3/ul Absolute Monos (auto) (0-0.8) 10^3/ul Absolute Eos (auto) (0-0.6) 10^3/ul Absolute Basos (auto) (0-0.2) 10^3/ul Absolute Nucleated RBC 10^3/ul Nucleated RBC % APTT (26.0-36.3) seconds Sodium (139-145) mmol/L Potassium (3.5-5.0) mmol/L Chloride (101-111) mmol/L Carbon Dioxide (22-32) mmol/L Anion Gap (2-11) mmol/L BUN (6-24) mg/dL Creatinine (0.67-1.17) mg/dL Est GFR ( Amer) (>60) Est GFR (Non-Af Amer) (>60) BUN/Creatinine Ratio (8-20) Glucose (70-100) mg/dL Lactic Acid (0.5-2.0) mmol/L Calcium (8.6-10.3) mg/dL Magnesium (1.9-2.7) mg/dL Total Bilirubin (0.2-1.0) mg/dL AST (13-39) U/L ALT (7-52) U/L Alkaline Phosphatase (34-104) U/L Total Creatine Kinase (10-223) U/L Troponin I (<0.04) ng/mL C-Reactive Protein (< 5.00) mg/L B-Natriuretic Peptide ( - 100) pg/mL Total Protein (6.4-8.9) g/dL Albumin (3.2-5.2) g/dL Globulin (2-4) g/dL Albumin/Globulin Ratio (1-3) TSH (0.34-5.60) mcIU/mL Urine Color Yellow Urine Appearance Clear Urine pH 7.0 (5-9) Ur Specific [place] 1.005 L (1.010-1.030) Urine Protein Negative (Negative) Urine Ketones Negative (Negative) Urine Blood Negative (Negative) Urine Nitrate Negative (Negative) Urine Bilirubin Negative (Negative) Urine Urobilinogen Negative (Negative) Ur Leukocyte Esterase Negative (Negative) Urine Glucose Negative (Negative) Urine Opiates Screen (None Detect) Ur Barbiturates Screen (None Detect) Ur Phencyclidine Scrn (None Detect) Ur Amphetamines Screen (None Detect) U Benzodiazepines Scrn (None Detect) Urine Cocaine Screen (None Detect) U Cannabinoids Screen (None Detect) Serum Alcohol (<10) mg/dL Result Diagrams: 12/31/17 09:12 12/31/17 09:12 Lab Statement: Any lab studies that have been ordered have been reviewed, and results considered in the medical decision making process. - Radiology Chest XR Xray Interpretation: No Acute Changes - IMPRESSION: No active cardiopulmonary disease. Dr. Leahy has reviewed this radiology report. Radiology Interpretation Completed By: Radiologist - CT Brain CT CT Interpretation: No Acute Changes - IMPRESSION: 1. No evidence for acute intracranial abnormality. 2. 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 Dr. Leahy has reviewed this radiology report. CT Interpretation Completed By: Radiologist - EKG 09:25 Cardiac Rate: NL EKG Interpretation: atrial ventricular rhythm at 61 bpm. EKG Comparison: No Significant Change - Similar to previous EKG on 10/08/17. Re-Evaluation - Re-Evaluation First Eval Re-Evaluation Time: 10:48 Comment: I reviewed the XR and CT results with the pt and family. Second Eval Re-Evaluation Time: 10:56 Change: Improved Comment: Pt was ambulated in the ED and he ambulated with a steady gait. Denies any dizziness. Third Eval Re-Evaluation Time: 10:58 Change: Improved Comment: Pt denies any dizziness. He ambulated well in the ED. I offered the pt an MRI and CTA but he declined. He reports he will be returning to the ED if his symptoms return or worsen. Dizzy Course/Dx - Course Assessment/Plan: This pt is a 82 y/o male presenting to [facility] c/o dizziness since 04:00 this morning. Pt reports he woke up at 04:00 not feeling well. He woke up again at 07:00 to go to the bathroom and he had an unsteady gait. Pt notes he had to lean against the wall and was unable to stand up. Pt additionally states nausea. He denies room spinning or lightheadedness. Denies chest pain, SOB, headache, blurred vision, vomiting. Test results without any significant abnormalities except for hemoglobin of 13.8, hematocrit of 41. Urinalysis is negative for UTI. Urine toxicology is negative. Chest XR shows no active cardiopulmonary disease. Brain CT: 1. No evidence for acute intracranial abnormality. 2. 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 In the ED course the pt was given IV fluids and meclizine. After this medication the pts symptoms resolved. Pt was ambulated in the ED and he ambulated well with a steady gait. Pt denies dizziness. I discussed pt care with Dr. Blanco, neurologist, who recommends an MRI and CTA. I offered the pt an MRI and CTA, but he declines. Pt reports he will be returning to the ED if his symptoms return or worsen. Therefore, he will be discharged to home with follow up from his PCP. I discussed all the findings and test results with the patient and family. All questions were answered to patient satisfaction. There were no further complaints or concerns. Pt was given a prescription for Meclizine. He is instructed to return to the ED for any worsening or new symptoms. Pt is hemodynamically stable, alert and oriented x3. - Diagnoses Differential Diagnosis/HQI/PQRI: Anxiety, Benign Paroxysmal Positional Vertigo, Labyrinthitis, Meniere's Disease, Seizure, Transient Ischemic Attack Provider Diagnoses: Vertigo - Provider Notifications Discussed Care Of Patient With: Po Blanco Time Discussed With Above Provider: 10:52 Instructed by Provider To: Other - I discussed pt care with Dr. Blanco, neurologist, who recommends an MRI and CTA. Discharge - Sign-Out/Discharge Documenting (check all that apply): Discharge - discharge to home - Discharge Plan Condition: Stable Disposition: HOME Prescriptions: Meclizine TAB* [Antivert 12.5 TAB*] 25 mg PO TID #30 tab Patient Education Materials: Vertigo (ED) Referrals: Aliyah Hooks MD [Primary Care Provider] - Additional Instructions: Please follow up with your primary care provider. RETURN TO THE ED FOR ANY NEW OR WORSENING SYMPTOMS. - Billing Disposition and Condition Condition: STABLE Disposition: HOME The documentation as recorded by the Hans becker Angela accurately reflects the service I personally performed and the decisions made by me, Joseph Leahy MD.
== END 2017-12-31 11:15 | disposition home or self-care (01) ==
LOC: ED 08:28
DX: R42 Dizziness and giddiness (principal); R11.0 Nausea; R26.81 Unsteadiness on feet; E03.9 Hypothyroidism, unspecified; I24.9 Acute ischemic heart disease, unspecified; I25.10 Atherosclerotic heart disease of native coronary artery without angina pectoris; I10 Essential (primary) hypertension; Z95.5 Presence of coronary angioplasty implant and graft; E78.00 Pure hypercholesterolemia, unspecified; Z95.810 Presence of automatic (implantable) cardiac defibrillator; Z88.8 Allergy status to other drugs, medicaments and biological substances
CPT/HCPCS: 36415; 70450; 71046; 80053; 80307; 80320; 81003; 82550; 83605; 83735; 83880; 84443; 84484; 85025; 85730; 86140; 93005; 96360; 99283; A9270-GY; G0480

== ENCOUNTER 2019-10-27 08:40 | Day surgery (SDC) | payer MEDICARE, BC ==
--- NOTE | 2019-10-23 11:30 | HP ---
PREOPERATIVE HISTORY AND PHYSICAL: DATE OF ADMISSION/SURGERY: 10/27/19 DATE OF OFFICE VISIT/ENCOUNTER: 10/09/19 ATTENDING SURGEON: Aletha Perez MD * (DICTATED BY KAM PINEDA) PROCEDURE: Right wrist carpal tunnel release. HISTORY OF PRESENT ILLNESS: This is an 84-year-old male who complains of numbness and tingling in his right hand, especially effecting his thumb, index, and middle fingers. There was no specific injury. He is denying neck pain, but sometimes the pain seems to radiate all the way up to his shoulder. He had a nerve conduction study, which showed severe carpal tunnel syndrome on the right. He would like to proceed with surgery for this problem. The patient's general internist is Dr. Hodge and we will get clearance from him prior to proceeding with surgery. PAST MEDICAL HISTORY: 1. Coronary artery disease. 2. Heart attack in 2003. 3. Hypothyroidism. PAST SURGICAL HISTORY: 1. Pacemaker placement in 2009. 2. Bilateral shoulder surgery. 3. Right thumb surgery. 4. Cardiac catheterization. 5. RCA stent placement. CURRENT MEDICATIONS: 1. S[place]y Thyroid 90 mg daily. 2. [place] Thyroid 30 mg daily. 3. CoQ10 100 mg daily. 4. DHEA 50 mg daily. 5. Magnesium 250 mg daily. 6. Vitamin B complex daily. 7. Vitamin D3 1000 units daily. ALLERGIES: STATINS. FAMILY MEDICAL HISTORY: Heart disease. SOCIAL HISTORY: The patient is a juares. He denies tobacco use, recreational drug use and does not drink alcohol. REVIEW OF SYSTEMS: Negative for general, cephalic, cardiovascular, respiratory , GI, , other musculoskeletal, integumentary, endocrine, neurologic, and hematologic symptoms. Infectious Disease: Negative for MRSA, hepatitis C, HIV. PHYSICAL EXAMINATION GENERAL: Well-developed, well-nourished 84-year-old male, in no acute distress. VITAL SIGNS: Height 5 feet 6 inches, weight 185 pounds. Pulse rate 83, blood pressure 132/76. HEENT: Normocephalic, atraumatic. Pupils are equal, round, and reactive to light and accommodation. Extraocular movements are intact. The patient wears bilateral hearing aids. Throat is clear. NECK: Supple. No palpable lymph nodes. PULMONARY: Lungs are clear to auscultation bilaterally. No wheezes, rales, or rhonchi. CARDIOVASCULAR: Regular rate and rhythm. S1, S2. No murmurs, rubs, or gallops. ABDOMEN: Positive bowel sounds. Soft, nontender. NEUROLOGICAL: Alert and oriented x3. Cranial nerves II through XII are intact. MUSCULOSKELETAL: On exam of his right hand, he has some thenar wasting and weakness with thumb abduction. He has good motion in his fingers. He has decreased sensation to light touch in the median nerve distribution of the right hand. Positive Tinel's at the wrist. DIAGNOSTIC STUDIES/LAB DATA: EMG nerve conduction study shows severe right carpal tunnel syndrome. PLAN: The patient is scheduled to undergo right wrist carpal tunnel release with Dr. Perez on 10/27/19. He will return to the office 10 days postop for followup and suture removal. Prescription for tramadol was e-scribed to the patient's pharmacy for postoperative pain management. KAM PINEDA [id number]/DINH #: [id number] GUSTAVO
[~2019-10-27 08:40] MED LIST changes: -Acetaminophen TAB* 325 MG PO PRN; -Buffered Lidocaine 1% SYR 3ML* 3 ML/SYR SYRINGE INTRADERM ONE; +Buffered Lidocaine 1% SYRIN* 1 ML/SYRINGE INTRADERM ONE; +Dexamethasone IV* 4 MG/ML 1 ML (4 MG) IV SLOW PU ONE; +Dexamethasone IV* 4 MG/ML 1 ML (4 MG) ONE; +Famotidine IV* 10 MG/ML 2 ML (20 mg) IV ONE; +Famotidine IV* 10 MG/ML 2 ML (20 mg) ONE; +Lactated Ringers 1000 ML Bag* 1,000 ML IV SCH
[2019-10-27] MEDS ORDERED: Lidocaine 1% INJ* 10 MG/ML 30 ML SDV ONE (08:53)
[2019-10-27] MEDS ORDERED: Ondansetron INJ* 2 MG/ML VIAL ONE (10:13)
[2019-10-27] MEDS ORDERED: Propofol* 10 MG/ML 20 ML BTL ONE (10:13)
[2019-10-27] MEDS ORDERED: Midazolam* 1 MG/ML 2 ML VIAL (2 MG) ONE (10:13)
[2019-10-27] MEDS ORDERED: Naloxone* 0.4 MG/ML 1 ML VIAL IV PRN (10:30)
[2019-10-27 11:36] VITALS: BP 123/77
--- NOTE | 2019-10-27 14:46 | OP ---
DATE OF OPERATION: 10/27/19 [facility] DATE OF : 35 SURGEON: Dr. Perez. LOSS PREVENTION/SAFETY DISTRICT MANAGER: KAM Machado. ANESTHESIA: Local MAC. PRE-OP DIAGNOSIS: Right carpal tunnel syndrome. POST-OP DIAGNOSIS: Right carpal tunnel syndrome. OPERATIVE PROCEDURE: Right carpal tunnel release. ESTIMATED BLOOD LOSS: Zero. TOURNIQUET TIME: About 10 minutes. INDICATIONS FOR PROCEDURE: Blake is an 84-year-old man who has numbness and tingling in the median nerve distribution of his right hand and presents for right carpal tunnel release. DESCRIPTION OF PROCEDURE: The patient was brought to the operating room and was given a sedation anesthetic and a local infiltration with 10 cc of 1% plain lidocaine in the palm of his right hand. The skin of his right hand and forearm was prepped and draped in the usual sterile fashion. The hand and forearm were exsanguinated and the tourniquet elevated to 250 mmHg. A longitudinal incision was made in the palm in line with the ring finger. We dissected through the subcutaneous tissue down to the transverse carpal ligament. The ligament was divided sharply with a knife and then more proximally with the scissors. The nerve was dissected free from the surrounding tissue and there was an area of moderate compression at the mid portion of the ligament. The wound was irrigated and the skin edges reapproximated with 4-0 nylon suture. The wound was dressed with Xeroform, 4x4 , Webril, and an Sukhjinder wrap. The patient tolerated the procedure well and was brought to the recovery room in good condition. [id number]/CPS #: [id number] [facility]IE[facility] MED[facility] CENTERShannan
== END 2019-10-29 11:41 | disposition home or self-care (01) ==
LOC: OREAST 08:40
PROVIDERS: ATTEND Orthopaedic Surgery
DX: G56.01 Carpal tunnel syndrome, right upper limb (principal); I25.10 Atherosclerotic heart disease of native coronary artery without angina pectoris; I25.2 Old myocardial infarction; G47.33 Obstructive sleep apnea (adult) (pediatric); E03.9 Hypothyroidism, unspecified; Z95.0 Presence of cardiac pacemaker
CPT/HCPCS: J1100; J2250; J2405; J2704

== ENCOUNTER 2019-11-21 10:12 | Day surgery (SDC) | payer MEDICARE, BC ==
--- NOTE | 2019-11-15 11:41 | HP ---
PREOPERATIVE HISTORY AND PHYSICAL: DATE OF ADMISSION/SURGERY: 11/21/19 - [facility] DATE OF OFFICE VISIT/ENCOUNTER: 11/06/19 ATTENDING SURGEON: Aletha Perez MD * (DICTATED BY KAM PINEDA) PROCEDURE: Left wrist carpal tunnel release. HISTORY OF PRESENT ILLNESS: This is an 84-year-old male who complains of numbness and tingling in his left hand, especially affecting his thumb, index, and middle fingers. There was no specific injury. Symptoms have been ongoing for several months. He had a nerve conduction study, which showed evidence of carpal tunnel syndrome on the left. He recently had a right wrist carpal tunnel release performed and has done quite well with that. He would now like to proceed with the left wrist carpal tunnel release. The patient's hanging flags decorator is Dr. Hodge and we will get clearance from him prior to proceeding with surgery. PAST MEDICAL HISTORY: 1. Coronary artery disease. 2. Heart attack in 2003. 3. Hypothyroidism. PAST SURGICAL HISTORY: 1. Right wrist carpal tunnel release. 2. Pacemaker placement in 2009. 3. Bilateral shoulder surgery. 4. Right thumb surgery. 5. Cardiac catheterization. 6. RCA stent placement. CURRENT MEDICATIONS: 1. [place] Thyroid 90 mg daily. 2. [place] Thyroid 30 mg daily. 3. CoQ10 100 mg daily. 4. DHEA 50 mg daily. 5. Magnesium 250 mg daily. 6. Vitamin B complex daily. 7. Vitamin D3 1000 units daily. ALLERGIES: STATINS. FAMILY MEDICAL HISTORY: Heart disease. SOCIAL HISTORY: The patient is a juares. He denies tobacco use, recreational drug use, and does not drink alcohol. REVIEW OF SYSTEMS: Negative for general, cephalic, cardiovascular, respiratory , GI, , other musculoskeletal, integumentary, endocrine, neurologic, and hematologic symptoms. Infectious Disease: Negative for MRSA, hepatitis C, HIV. PHYSICAL EXAMINATION GENERAL: A well-developed, well-nourished 84-year-old male, in no acute distress. VITAL SIGNS: Height 5 feet 7 inches, weight 196 pounds. Pulse rate 88, blood pressure 136/78. HEENT: Normocephalic, atraumatic. Pupils are equal, round, and reactive to light and accommodation. Extraocular movements are intact. The patient wears bilateral hearing aids. Throat is clear. NECK: Supple. No palpable lymph nodes. PULMONARY: Lungs are clear to auscultation bilaterally. No wheezes, rales, or rhonchi. CARDIOVASCULAR: Regular rate and rhythm. S1, S2. Systolic ejection murmur detected on auscultation. ABDOMEN: Positive bowel sounds. Soft, nontender. MUSCULOSKELETAL: On exam of his left hand, he has some mild thenar wasting and weakness with thumb abduction. He has good motion in his fingers. Slight decrease in sensation to light touch in the median nerve distribution of the left hand. Positive Tinel's at the wrist. NEUROLOGICAL: Alert and oriented x3. Cranial nerves II through XII are intact. DIAGNOSTIC STUDIES: EMG nerve conduction study shows carpal tunnel syndrome on the left. IMPRESSION: Left carpal tunnel syndrome. PLAN: The patient is scheduled to undergo a left wrist carpal tunnel release with Dr. Perez on 11/21/19. He will return to the office 10 days postop for followup and suture removal. A prescription for tramadol was e-scribed to the patient's pharmacy for postoperative pain management. KAM PINEDA [id number]/[facility] #: [id number] GUSTAVO
[2019-11-21] MEDS ORDERED: fentaNYL* 50 MCG/ML 2 ML VIAL (100 MCG VIAL) ONE (12:31)
[2019-11-21] MEDS ORDERED: Propofol* 10 MG/ML 20 ML BTL ONE (12:31)
[2019-11-21] MEDS ORDERED: Lidocaine 2% PF * 5 ML VIAL ONE (12:31)
[2019-11-21] MEDS ORDERED: Midazolam* 1 MG/ML 2 ML VIAL (2 MG) ONE (12:31)
[2019-11-21] MEDS ORDERED: Lidocaine 1% INJ* 10 MG/ML 30 ML SDV ONE (12:46)
[2019-11-21] MEDS ORDERED: Naloxone* 0.4 MG/ML 1 ML VIAL IV PRN (12:48)
[2019-11-21] MEDS ORDERED: Ondansetron INJ* 2 MG/ML VIAL IV PRN (12:48)
[2019-11-21] MEDS ORDERED: HYDROcodone/ACETAMIN 5-325 MG* 1 TAB PO PRN (12:48)
[2019-11-21] MEDS ORDERED: fentaNYL* 50 MCG/ML 2 ML VIAL (100 MCG VIAL) IV PRN (12:48)
[2019-11-21] MEDS ORDERED: oxyCODONE/Acetamin 5/325 MG* TAB PO PRN (12:48)
[2019-11-21] MEDS ORDERED: Acetaminophen TAB* 325 MG PO PRN (12:48)
[2019-11-21 13:50] VITALS: BP 124/65
--- NOTE | 2019-11-22 02:42 | OP ---
DATE OF OPERATION: 11/21/19 - [facility] DATE OF : 35 SURGEON: Aletha Perez MD COIL BUILDER: KAM Machado ANESTHESIA: Local MAC. PRE-OP DIAGNOSIS: Left carpal tunnel syndrome. POST-OP DIAGNOSIS: Left carpal tunnel syndrome. OPERATIVE PROCEDURE: Left carpal tunnel release. INDICATIONS: Blake is an 84-year-old man who has numbness and tingling in the median nerve distribution of his left hand and presents for left carpal tunnel release. ESTIMATED BLOOD LOSS: Zero. TOURNIQUET TIME: About 10 minutes. DESCRIPTION OF PROCEDURE: The patient was brought to the operating room, was given a sedation anesthetic and a local infiltration of 10 cc of 1% plain lidocaine in the palm of his left hand. The skin of his left hand and forearm was prepped and draped in the usual sterile fashion. The hand and forearm were exsanguinated and the tourniquet elevated to 250 mmHg. A longitudinal incision was made in the palm in line with the ring finger. We dissected through the subcutaneous tissue down to the transverse carpal ligament. The ligament was divided sharply with a knife and then more proximally the scissors. The nerve was dissected free from surrounding tissue and there was an area of moderate compression at the mid portion of the ligament. The wound was irrigated and the skin edges reapproximated with 4-0 nylon suture. The wound was dressed with Xeroform, 4x4, Webril, and an Sukhjinder wrap. The patient tolerated the procedure well and was brought to the recovery room in good condition. [id number]/[facility] #: [id number] [facility]
== END 2019-11-21 14:06 | disposition home or self-care (01) ==
LOC: OREAST 10:12
PROVIDERS: ATTEND Orthopaedic Surgery
DX: G56.02 Carpal tunnel syndrome, left upper limb (principal); I25.10 Atherosclerotic heart disease of native coronary artery without angina pectoris; I25.2 Old myocardial infarction; E03.9 Hypothyroidism, unspecified; Z95.5 Presence of coronary angioplasty implant and graft; Z95.0 Presence of cardiac pacemaker; I48.91 Unspecified atrial fibrillation; G47.33 Obstructive sleep apnea (adult) (pediatric); R00.1 Bradycardia, unspecified
CPT/HCPCS: J1100; J2250; J2704; J3010

== ENCOUNTER 2020-04-21 08:36 | Observation (INO) ==
[2020-04-21] MEDS ORDERED: Iohexol 350 (CONTRAST) 500 ML MDV IV ONE (09:03)
[2020-04-21 09:15] LABS: ABS Lymphocytes 0.4 10^3/ul (1.0-4.8); ABS Monocytes 0.7 10^3/ul (0-0.8); Hematocrit 36 % (42-52); Hemoglobin 12.6 g/dL (14.0-18.0); Lymphocyte % 4.6 %; Mean Corpuscular HGB Conc 35 g/dL (31-36); Mean Corpuscular Hemoglobin 31 pg (27-31); Mean Corpuscular Volume 89 fL (80-94); Mean Platelet Volume 8.8 fL (7.4-10.4); Platelet Count 216 10^3/uL (150-450); Red Cell Distribution Width 13 % (10-15); White Blood Count 8.4 10^3/uL (3.5-10.8)
[2020-04-21 09:20] LABS: INR 1.17 (0.82-1.09)
[2020-04-21] MEDS ORDERED: NS 0.9% 1000 ml BAG 1,000 ML IV ONE (09:27)
[2020-04-21 09:36] LABS: ALT 25 U/L (7-52); AST 19 U/L (13-39); Albumin 4.1 g/dL (3.2-5.2); Albumin/Globulin Ratio 1.3 (1-3); Alkaline Phosphatase 68 U/L (34-104); Anion Gap 6 mmol/L (2-11); BUN/Creatinine Ratio 19.4 (8-20); Blood Urea Nitrogen 14 mg/dL (6-24); C Reactive Protein 47.71 mg/L (<8.01); CO2 Carbon Dioxide 28 mmol/L (22-32); Calcium 9.2 mg/dL (8.6-10.3); Chloride 101 mmol/L (101-111); EGFR African American 125.8 (>60); Globulin 3.2 g/dL (2-4); Glucose 136 mg/dL (70-100); Magnesium 1.9 mg/dL (1.9-2.7); Potassium 4.2 mmol/L (3.5-5.0); Sodium 135 mmol/L (135-145); Total Protein 7.3 g/dL (6.4-8.9)
[2020-04-21 09:40] LABS: Troponin I 0.03 ng/mL (<0.03)
[2020-04-21] MEDS ORDERED: Ondansetron 4 mg VIAL 2 MG/ML 2 ml VIAL IV PRN (11:40)
[2020-04-21 12:35] LABS: Troponin I 0.03 ng/mL (<0.03)
[2020-04-21 12:43] LABS: Total Iron Binding Capacity 276 mcg/dL (250-450); Transferrin 197 mg/dL (203-362)
[2020-04-21 12:47] LABS: % Iron Saturation 7 % (15-55); Iron < 20 ug/dL (50-212)
[2020-04-21 13:03] LABS: Ferritin 116.7 ng/mL (24-336)
[2020-04-21 13:08] LABS: Urine Appearance Clear; Urine Bilirubin Negative (Negative); Urine Blood 1+ (Negative); Urine Color Yellow; Urine Glucose Negative (Negative); Urine Ketones Negative (Negative); Urine Nitrite Negative (Negative); Urine Protein Negative (Negative); Urine Specific Gravity 1.053 (1.010-1.030); Urine Urobilinogen Negative (Negative)
[2020-04-21 13:10] LABS: Urine Bacteria Absent (Absent); Urine Red Blood Cell 1+(3-5/hpf) (Absent); Urine White Blood Cell Absent (Absent)
[2020-04-21] MEDS ORDERED: Iron Sucrose 200 MG in NS 0.9% 100 ml BAG 100 ML IVPB ONE (13:27)
[2020-04-21] MEDS: Enoxaparin 40 MG/0.4 ML SYR SUBCUT SCH (14:27)
[2020-04-21 15:05] LABS: Troponin I 0.03 ng/mL (<0.03)
[2020-04-22 06:17] LABS: ABS Eosinophils 0.2 10^3/ul (0-0.6); ABS Lymphocytes 1.1 10^3/ul (1.0-4.8); ABS Monocytes 0.9 10^3/ul (0-0.8); Eosinophil % 2.5 %; Hematocrit 35 % (42-52); Hemoglobin 11.9 g/dL (14.0-18.0); Lymphocyte % 16.6 %; Mean Corpuscular HGB Conc 34 g/dL (31-36); Mean Corpuscular Hemoglobin 30 pg (27-31); Mean Corpuscular Volume 89 fL (80-94); Nucleated Red Blood Cells % 0.1; Platelet Count 186 10^3/uL (150-450); Red Blood Count 3.91 10^6 /uL (4.18-5.48); Red Cell Distribution Width 13 % (10-15); White Blood Count 6.9 10^3/uL (3.5-10.8)
[2020-04-22 06:40] LABS: BUN/Creatinine Ratio 17.9 (8-20); Calcium 8.6 mg/dL (8.6-10.3); EGFR African American 105.3 (>60); EGFR Non-African American 87.1 (>60); HDL Cholesterol 35.8 mg/dL; Potassium 4.3 mmol/L (3.5-5.0)
[2020-04-22] MEDS ORDERED: Vitamin THERAPEUTIC TAB PO SCH (09:00)
[2020-04-22] MEDS ORDERED: Aminophylline 25 MG/ML VIAL ONE (11:58)
[2020-04-22] MEDS ORDERED: Regadenoson 0.4 MG/5 ML SYRINGE ONE (11:58)
[2020-04-22] MEDS: Enoxaparin 40 MG/0.4 ML SYR SUBCUT SCH (12:10)
[2020-04-22 15:52] VITALS: BP 115/51
== END 2020-04-22 16:05 | disposition home or self-care (01) ==
LOC: ED 08:36 → MEDTELE 08:36
PROVIDERS: ADMIT Internal Medicine; ATTEND Internal Medicine

== ENCOUNTER 2020-05-10 08:27 | Inpatient (IN) ==
[2020-05-10 09:20] LABS: ABS Lymphocytes 0.8 10^3/ul (1.0-4.8); ABS Monocytes 1.3 10^3/ul (0-0.8); ABS Neutrophils 8.2 10^3/ul (1.5-7.7); Eosinophil % 0.4 %; Hematocrit 36 % (42-52); Hemoglobin 11.9 g/dL (14.0-18.0); Lymphocyte % 7.5 %; Mean Corpuscular HGB Conc 34 g/dL (31-36); Mean Corpuscular Hemoglobin 29 pg (27-31); Mean Corpuscular Volume 88 fL (80-94); Platelet Count 332 10^3/uL (150-450); Red Blood Count 4.06 10^6 /uL (4.18-5.48); Red Cell Distribution Width 13 % (10-15); White Blood Count 10.4 10^3/uL (3.5-10.8)
[2020-05-10] MEDS ORDERED: cefTRIAXone 1 gm/50 mL NS BAG 1 GM/50 ML BAG IV ONE (09:20)
[2020-05-10 09:40] LABS: ALT 48 U/L (7-52); AST 43 U/L (13-39); Albumin/Globulin Ratio 1.2 (1-3); Alkaline Phosphatase 191 U/L (34-104); Anion Gap 8 mmol/L (2-11); BUN/Creatinine Ratio 26.6 (8-20); Blood Urea Nitrogen 17 mg/dL (6-24); C Reactive Protein 183.97 mg/L (<8.01); CO2 Carbon Dioxide 26 mmol/L (22-32); Calcium 9.4 mg/dL (8.6-10.3); Chloride 102 mmol/L (101-111); EGFR African American 144.2 (>60); EGFR Non-African American 119.1 (>60); Globulin 3.4 g/dL (2-4); Glucose 131 mg/dL (70-100); Potassium 4.3 mmol/L (3.5-5.0); Sodium 136 mmol/L (135-145); Total Protein 7.4 g/dL (6.4-8.9)
[2020-05-10 09:44] LABS: CKMB ng/mL 3.7 ng/mL (0.6-6.3)
[2020-05-10 09:48] LABS: Activated Partial Thrombo Time 32.7 seconds (26.0-38.0); INR 1.31 (0.82-1.09)
[2020-05-10 09:50] LABS: Troponin I 0.05 ng/mL (<0.03)
[2020-05-10] MEDS ORDERED: Azithromycin 500 mg/250 ml NS 500 MG/250 ML BAG IVPB ONE (10:04)
[2020-05-10] MEDS ORDERED: Iohexol 350 (CONTRAST) 500 ML MDV IV ONE (10:27)
[2020-05-10] MEDS ORDERED: Diltiazem IV push/loading dose 5 MG/ML 5 ML vial (25 mg) IV SLOW PU ONE (11:12)
[2020-05-10] MEDS ORDERED: Diltiazem IV BAG D5W Premix 125 MG/125 ML BAG IV SCH (12:00)
[2020-05-10 12:32] LABS: Troponin I 0.06 ng/mL (<0.03)
[2020-05-10] MEDS: Diltiazem IV BAG D5W Premix 125 MG/125 ML BAG IV SCH ×2 (12:45→22:57)
[2020-05-10] MEDS ORDERED: Digoxin IV 0.5 MG/2 ML AMP (0.25 MG/ML) IV SLOW PU ONE (13:04)
[2020-05-10] MEDS ORDERED: Furosemide 20 mg/2 ml IV VIAL IV ONE (13:04)
[2020-05-10 13:22] LABS: Total Iron Binding Capacity 281 mcg/dL (250-450); Transferrin 201 mg/dL (203-362)
[2020-05-10 13:23] LABS: % Iron Saturation 7 % (15-55); Iron < 20 ug/dL (50-212); Unsaturated Iron Binding < 266 ug/dL
[2020-05-10 14:04] LABS: TSH Ultra Thyroid Stim Horm 11.18 mcIU/mL (0.34-5.60)
[2020-05-10 14:20] LABS: Ferritin 445.2 ng/mL (24-336)
[2020-05-10] MEDS: Heparin 5000 UNITS/ML 1 mL VIAL SUBCUT SCH ×2 (14:42→20:55)
[2020-05-10 14:44] LABS: Erythrocyte Sed Rate 58 mm/Hr (0-19)
[2020-05-10 14:59] LABS: Troponin I 0.05 ng/mL (<0.03)
[2020-05-10 17:07] LABS: Urine Appearance Clear; Urine Bilirubin Negative (Negative); Urine Blood Negative (Negative); Urine Color Amber; Urine Glucose Negative (Negative); Urine Ketones Trace (Negative); Urine Nitrite Negative (Negative); Urine Protein Negative (Negative); Urine Specific Gravity 1.054 (1.010-1.030); Urine Urobilinogen Negative (Negative)
[2020-05-10] MEDS ORDERED: Analgesic BALM 114 GM TOPICAL PRN (23:37)
[2020-05-11] MEDS: Heparin 5000 UNITS/ML 1 mL VIAL SUBCUT SCH ×3 (06:04→20:54)
[2020-05-11 06:34] LABS: ABS Basophils 0.1 10^3/ul (0-0.2); ABS Lymphocytes 0.7 10^3/ul (1.0-4.8); ABS Monocytes 1.2 10^3/ul (0-0.8); ABS Neutrophils 8.2 10^3/ul (1.5-7.7); Eosinophil % 0.3 %; Hematocrit 31 % (42-52); Hemoglobin 10.7 g/dL (14.0-18.0); Lymphocyte % 6.6 %; Mean Corpuscular HGB Conc 34 g/dL (31-36); Mean Corpuscular Hemoglobin 30 pg (27-31); Mean Corpuscular Volume 88 fL (80-94); Mean Platelet Volume 9.9 fL (7.4-10.4); Platelet Count 239 10^3/uL (150-450); Red Blood Count 3.56 10^6 /uL (4.18-5.48); Red Cell Distribution Width 14 % (10-15); White Blood Count 10.2 10^3/uL (3.5-10.8)
[2020-05-11 06:49] LABS: BUN/Creatinine Ratio 33.8 (8-20); C Reactive Protein 216.85 mg/L (<8.01); EGFR African American 134.4 (>60); EGFR Non-African American 111.1 (>60); Potassium 4.5 mmol/L (3.5-5.0)
[2020-05-11] MEDS ORDERED: Furosemide 20 mg/2 ml IV VIAL IV SLOW PU ONE (06:53)
[2020-05-11] MEDS ORDERED: Diltiazem IV BAG D5W Premix 125 MG/125 ML BAG IV SCH (09:55)
[2020-05-11] MEDS ORDERED: Furosemide 20 mg/2 ml IV VIAL IV ONE (10:00)
[2020-05-11] MEDS ORDERED: Iron Sucrose 200 MG in NS 0.9% 100 ml BAG 100 ML IVPB ONE (14:30)
[2020-05-11 16:28] LABS: Body Fluid Source Pleural Fluid
[2020-05-11 17:03] LABS: Body Fluid Mono 14 %; Body Fluid Other Cells 4
[2020-05-12] MEDS: Heparin 5000 UNITS/ML 1 mL VIAL SUBCUT SCH ×3 (05:40→21:25)
[2020-05-12 08:47] LABS: ABS Lymphocytes 0.7 10^3/ul (1.0-4.8); Hematocrit 30 % (42-52); Hemoglobin 10.4 g/dL (14.0-18.0); Lymphocyte % 6.8 %; Mean Corpuscular HGB Conc 34 g/dL (31-36); Mean Corpuscular Hemoglobin 30 pg (27-31); Mean Corpuscular Volume 87 fL (80-94); Mean Platelet Volume 8.7 fL (7.4-10.4); Platelet Count 269 10^3/uL (150-450); Red Blood Count 3.46 10^6 /uL (4.18-5.48); Red Cell Distribution Width 13 % (10-15); White Blood Count 9.6 10^3/uL (3.5-10.8)
[2020-05-12 09:21] LABS: BUN/Creatinine Ratio 32.2 (8-20); C Reactive Protein 190.72 mg/L (<8.01); Calcium 9.2 mg/dL (8.6-10.3); EGFR African American 158.4 (>60); EGFR Non-African American 130.9 (>60)
[2020-05-13] MEDS: Heparin 5000 UNITS/ML 1 mL VIAL SUBCUT SCH ×3 (05:53→21:36)
[2020-05-13 07:05] LABS: ABS Lymphocytes 0.9 10^3/ul (1.0-4.8); ABS Monocytes 0.7 10^3/ul (0-0.8); ABS Neutrophils 6.4 10^3/ul (1.5-7.7); Eosinophil % 0.1 %; Hematocrit 29 % (42-52); Hemoglobin 10.1 g/dL (14.0-18.0); Lymphocyte % 11.5 %; Mean Corpuscular HGB Conc 35 g/dL (31-36); Mean Corpuscular Hemoglobin 30 pg (27-31); Mean Corpuscular Volume 87 fL (80-94); Mean Platelet Volume 8.6 fL (7.4-10.4); Platelet Count 278 10^3/uL (150-450); Red Blood Count 3.36 10^6 /uL (4.18-5.48); Red Cell Distribution Width 14 % (10-15)
[2020-05-13 07:20] LABS: Albumin 3.2 g/dL (3.2-5.2); Albumin/Globulin Ratio 1.1 (1-3); BUN/Creatinine Ratio 29.5 (8-20); C Reactive Protein 102.91 mg/L (<8.01); Calcium 9.2 mg/dL (8.6-10.3); EGFR African American 152.4 (>60); EGFR Non-African American 125.9 (>60); Globulin 2.9 g/dL (2-4); Potassium 4.1 mmol/L (3.5-5.0); Total Bilirubin 0.3 mg/dL (0.2-1.0); Total Protein 6.1 g/dL (6.4-8.9)
[2020-05-13 16:02] LABS: JO-1 Antibody <0.2 U; RNP Antibody, IgG 0.2 U; SS-A/Ro Antibody <0.2 U; SS-B/La Antibody <0.2 U; Sm (Smith) IgG Antibody <0.2 U
[2020-05-14] MEDS: Heparin 5000 UNITS/ML 1 mL VIAL SUBCUT SCH ×2 (05:09→14:01)
[2020-05-14 07:40] LABS: Hematocrit 32 % (42-52); Hemoglobin 10.8 g/dL (14.0-18.0); Mean Corpuscular HGB Conc 34 g/dL (31-36); Mean Corpuscular Hemoglobin 29 pg (27-31); Mean Corpuscular Volume 87 fL (80-94); Mean Platelet Volume 8.4 fL (7.4-10.4); Platelet Count 331 10^3/uL (150-450); Red Blood Count 3.66 10^6 /uL (4.18-5.48); Red Cell Distribution Width 14 % (10-15); White Blood Count 8.1 10^3/uL (3.5-10.8)
[2020-05-14 07:57] LABS: BUN/Creatinine Ratio 29.3 (8-20); C Reactive Protein 51.3 mg/L (<8.01); Calcium 9.3 mg/dL (8.6-10.3); EGFR African American 161.5 (>60); EGFR Non-African American 133.5 (>60); Potassium 3.8 mmol/L (3.5-5.0)
[2020-05-14 13:05] VITALS: BP 127/67
[2020-05-14 14:27] LABS: Fluid Type, Glucose PLEURAL; Glucose, BF 160 mg/dL
[2020-05-14 14:32] LABS: Lactate Dehydrogenase, BF 173 U/L
[2020-05-14 14:45] LABS: Fluid Type, Protein, Total PLEURAL
== END 2020-05-14 16:30 | disposition home health service (06) | DRG 187 ==
LOC: ED 08:27 → MED 11:20
PROVIDERS: ADMIT Internal Medicine; ATTEND Internal Medicine

== ENCOUNTER 2020-12-24 21:36 | Inpatient (IN) ==
[2020-12-24] MEDS ORDERED: Diltiazem IV push/loading dose 5 MG/ML 5 ML vial (25 mg) IV SLOW PU ONE (23:32)
[2020-12-24] MEDS ORDERED: Diltiazem (ADVAN VIAL) 100 MG/100 ML ADDV.BAG IV SCH (23:45)
[2020-12-24 23:58] LABS: ABS Lymphocytes 1.3 10^3/ul (1.0-4.8); ABS Monocytes 1.1 10^3/ul (0-0.8); ABS Neutrophils 7.7 10^3/ul (1.5-7.7); Eosinophil % 0.4 %; Hematocrit 38 % (42-52); Hemoglobin 13.1 g/dL (14.0-18.0); Lymphocyte % 12.4 %; Mean Corpuscular HGB Conc 34 g/dL (31-36); Mean Corpuscular Hemoglobin 31 pg (27-31); Mean Corpuscular Volume 89 fL (80-94); Mean Platelet Volume 8.8 fL (7.4-10.4); Platelet Count 239 10^3/uL (150-450); Red Blood Count 4.29 10^6 /uL (4.18-5.48); Red Cell Distribution Width 13 % (10-15); White Blood Count 10.1 10^3/uL (3.5-10.8)
[2020-12-25 00:16] LABS: ALT 27 U/L (7-52); AST 26 U/L (13-39); Albumin 4.1 g/dL (3.2-5.2); Albumin/Globulin Ratio 1.5 (1-3); Alkaline Phosphatase 42 U/L (34-104); Anion Gap 9 mmol/L (2-11); BUN/Creatinine Ratio 25.6 (8-20); Blood Urea Nitrogen 20 mg/dL (6-24); CO2 Carbon Dioxide 24 mmol/L (22-32); Calcium 9.5 mg/dL (8.6-10.3); Chloride 104 mmol/L (101-111); EGFR African American 114.5 (>60); EGFR Non-African American 94.6 (>60); Globulin 2.8 g/dL (2-4); Glucose 129 mg/dL (70-100); Potassium 4.2 mmol/L (3.5-5.0); Sodium 137 mmol/L (135-145); Total Protein 6.9 g/dL (6.4-8.9)
[2020-12-25 00:36] LABS: Troponin I 0.11 ng/mL (<0.03)
[2020-12-25 02:40] LABS: Magnesium 2.1 mg/dL (1.9-2.7)
[2020-12-25 05:33] LABS: Cholesterol 153 mg/dL; HDL Cholesterol 57.6 mg/dL; LDL Cholesterol 80 mg/dL; Triglycerides 78 mg/dL
[2020-12-25 05:49] LABS: TSH Ultra Thyroid Stim Horm 2.65 mcIU/mL (0.34-5.60)
[2020-12-25 05:51] LABS: Free T4 0.48 ng/dL (0.61-1.12)
[2020-12-25 05:56] LABS: Total T3 88 ng/dL (87-178)
[2020-12-25] MEDS ORDERED: Enoxaparin 40 MG/0.4 ML SYR SUBCUT SCH (06:00)
[2020-12-25 09:24] LABS: ABS Eosinophils 0.1 10^3/ul (0-0.6); ABS Monocytes 1.2 10^3/ul (0-0.8); ABS Neutrophils 6.7 10^3/ul (1.5-7.7); Eosinophil % 0.6 %; Hematocrit 36 % (42-52); Hemoglobin 12.3 g/dL (14.0-18.0); Mean Corpuscular HGB Conc 34 g/dL (31-36); Mean Corpuscular Hemoglobin 30 pg (27-31); Mean Corpuscular Volume 89 fL (80-94); Mean Platelet Volume 8.7 fL (7.4-10.4); Platelet Count 206 10^3/uL (150-450); Red Blood Count 4.06 10^6 /uL (4.18-5.48); Red Cell Distribution Width 14 % (10-15)
[2020-12-25 09:44] LABS: Troponin I 0.15 ng/mL (<0.03)
[2020-12-25 09:47] LABS: Anion Gap 6 mmol/L (2-11); Blood Urea Nitrogen 19 mg/dL (6-24); CO2 Carbon Dioxide 28 mmol/L (22-32); Calcium 9.2 mg/dL (8.6-10.3); Chloride 102 mmol/L (101-111); EGFR African American 123.6 (>60); EGFR Non-African American 102.1 (>60); Glucose 113 mg/dL (70-100); Magnesium 2.1 mg/dL (1.9-2.7); Potassium 4.2 mmol/L (3.5-5.0); Sodium 136 mmol/L (135-145)
[2020-12-25] MEDS ORDERED: Amiodarone 400 mg TAB PO SCH (12:00)
[2020-12-25 12:01] LABS: Troponin I 0.13 ng/mL (<0.03)
[2020-12-25 14:23] VITALS: BP 131/76
== END 2020-12-25 16:00 | disposition home or self-care (01) | DRG 310 ==
LOC: ED 21:36 → MEDTELE 12-25 04:06
PROVIDERS: ADMIT Internal Medicine; ATTEND Internal Medicine